=== PATIENT | male | born 1935 | race Caucasian/White ===

== ENCOUNTER 2016-08-16 08:59 | Emergency (ER) | payer MEDICARE, OTHER ==
[~2016-08-16] VITALS: Ht 185.4 cm; Wt 94.3 kg
[~2016-08-16 08:59] MED LIST: APIX5TAB3 PO; ASPI-630 PO; ATOR40TA59 PO; B12/1TAB3 PO; DILT180C2 PO; FENO54TA PO; FOLI1TAB16 PO; GLIM1TAB2 PO; ISOS60TA; METF500T4 PO; NEBI2.5T2 PO; NEBI5TAB2 PO; OMEP40CA5 PO; SIMV20TA3 PO; VITA1TAB19 PO
[2016-08-16] MEDS ORDERED: AMIODARONE 150 MG/3 ML VIAL IVP ONE (09:09)
[2016-08-16] MEDS ORDERED: IV NORMAL SALINE 100ML 100 ML ONE (09:09)
[2016-08-16] MEDS ORDERED: MORPHINE SULFATE 4 MG/ML DISP.SYRIN. ONE (09:14)
[2016-08-16] MEDS ORDERED: AMIODARONE 150 MG in IV DEXTROSE 5% 100 ML IV ONE (09:30)
[2016-08-16] MEDS ORDERED: 0.9 % SODIUM CHLORIDE 10 ML DISP.SYRIN. IV PRN (09:30)
[2016-08-16] MEDS ORDERED: AMIODARONE 900 MG in IV DEXTROSE 5% 500 ML IV ONE (09:30)
[2016-08-16] MEDS ORDERED: MORPHINE SULFATE 4 MG/ML DISP.SYRIN. IV/SQ PRN (09:30)
[2016-08-16 09:34] LABS: BASO # 0.1 x10^3/uL (0.0-0.2); BASO % 1 % (0-3); EOS # 0.4 x10^3/uL (0.0-0.7); EOS % 3 % (0-3); HEMATOCRIT 40.2 % (39.0-53.0); HEMOGLOBIN 13.3 g/dL (13.0-17.5); LYMPH # 2.9 x10^3/uL (1.0-4.8); LYMPH % 22 % (24-48); MEAN CORPUSCULAR HEMOGLOBIN 29 pg (25-35); MEAN CORPUSCULAR HGB CONC 33 g/dL (31-37); MEAN CORPUSCULAR VOLUME 88 fL (79-100); MONO # 1.4 x10^3/uL (0.0-1.1); MONO % 11 % (0-9); NEUT # 8.4 x10^3uL (1.8-7.7); NEUT % 63 % (31-73); PLATELET COUNT 244 x10^3/uL (140-400); RED BLOOD COUNT 4.57 x10^6/uL (4.30-5.70); RED CELL DISTRIBUTION WIDTH 15.4 % (11.5-14.5); WHITE BLOOD COUNT 13.2 x10^3/uL (4.0-11.0)
--- NOTE | 2016-08-16 09:40 | RAD ---
Indication chest pain. Tachycardia. A single view of the chest was obtained. Comparison is made to a study 03/16/2016. The heart and pulmonary vessels appear normal. The lungs are clear. There is no pleural fluid or pneumothorax. There has not been a significant change compared to the previous exam. Postoperative changes are noted. IMPRESSION: No acute or focal process seen in the chest. No significant change
[2016-08-16 09:43] LABS: ALBUMIN 3.3 g/dL (3.4-5.0); ALBUMIN/GLOBULIN RATIO 0.8 (1.0-1.7); CALCIUM 9.1 mg/dL (8.5-10.1); CREATININE 1.5 mg/dL (0.7-1.3); GFR 44.8; POTASSIUM 4.1 mmol/L (3.5-5.1); TOTAL BILIRUBIN 0.8 mg/dL (0.2-1.0); TOTAL PROTEIN 7.4 g/dL (6.4-8.2)
[2016-08-16] MEDS ORDERED: IV NORMAL SALINE 500ML 500 ML ONE (09:51)
--- NOTE | 2016-08-16 09:55 | PHYS DOC ---
Past History Past Medical History: CAD, Diabetes, High Cholesterol Past Surgical History: Coronary Bypass Surgery, Other Smoking: Non-smoker Alcohol Use: None Drug Use: None Adult General Chief Complaint Chief Complaint: CHEST PAIN HPI HPI Patient is a 81-year-old year old who presents with chest pain and rapid heart rate. He states that 3 weeks ago he was just in the hospital and had a cardiac stent This morning he woke up between 10/01/44 and had shortness of breath noted pain across his chest with shortness of breath. He came diaphoretic and slight chest pain pain was about 7 months 10 scale and nothing made it better or worse he denies any pain at the present time This man has known chest pain and known cardiac disease. He presents now for evaluation. Review of Systems Review of Systems Constitutional: Denies fever or chills [] Eyes: Denies change in visual acuity, redness, or eye pain [] HENT: Denies nasal congestion or sore throat [] Respiratory: Denies cough or shortness of breath [] Cardiovascular: No additional information not addressed in HPI [] GI: Denies abdominal pain, nausea, vomiting, bloody stools or diarrhea [] : Denies dysuria or hematuria [] Musculoskeletal: Denies back pain or joint pain [] Integument: Denies rash or skin lesions [] Neurologic: Denies headache, focal weakness or sensory changes [] Endocrine: Denies polyuria or polydipsia [] Current Medications Current Medications Current Medications Medications (Trade) Dose Ordered Sig/Kevin Start Time Stop Time Status Last Admin Dose Admin Amiodarone HCl (Cordarone) 150 mg STK-MED ONCE 08/16/16 09:09 08/16/16 09:10 DC Amiodarone HCl 150 mg/Dextrose 103 ml @ 400 mls/hr 1X ONCE 08/16/16 09:30 08/16/16 09:45 DC 08/16/16 09:15 400 MLS/HR Amiodarone HCl 900 mg/Dextrose 518 ml @ 0 mls/hr 1X ONCE 08/16/16 09:30 08/16/16 09:31 DC Morphine Sulfate (Morphine 4mg Syringe) 4 mg PRN Q15MIN PRN 08/16/16 09:30 08/17/16 09:29 08/16/16 09:17 4 MG Sodium Chloride 500 ml @ As Directed STK-MED ONCE 08/16/16 09:51 08/16/16 09:52 DC Sodium Chloride (Normal Saline Flush) 10 ml QSHIFT PRN 08/16/16 09:30 Allergies Allergies Allergies Coded Allergies Type Severity Reaction Last Updated Verified No Known Drug Allergies 08/16/16 No Physical Exam Physical Exam Constitutional: Well developed, well nourished, no acute distress, non-toxic appearance. [] HENT: Normocephalic, atraumatic, bilateral external ears normal, oropharynx moist, no oral exudates, nose normal. [] Eyes: PERRLA, EOMI, conjunctiva normal, no discharge. [] Neck: Normal range of motion, no tenderness, supple, no stridor. [] Cardiovascular:Heart rate regular rhythm, no murmur [] Lungs & Thorax: Bilateral breath sounds clear to auscultation [] Abdomen: Bowel sounds normal, soft, no tenderness, no masses, no pulsatile masses. [] Skin: Warm, dry, no erythema, no rash. [] Back: No tenderness, no CVA tenderness. [] Extremities: No tenderness, no cyanosis, no clubbing, ROM intact, no edema. [] Neurologic: Alert and oriented X 3, normal motor function, normal sensory function, no focal deficits noted. [] Psychologic: Affect normal, judgement normal, mood normal. [] Current Patient Data Vital Signs Vital Signs Date Time Temp Pulse Resp B/P (MAP) Pulse Ox O2 Delivery O2 Flow Rate FiO2 08/16/16 09:24 96.6 160 20 99 Room Air 08/16/16 09:15 113/80 Lab Results Laboratory Tests Test 08/16/16 09:12 White Blood Count 13.2 x10^3/uL (4.0-11.0) H Red Blood Count 4.57 x10^6/uL (4.30-5.70) Hemoglobin 13.3 g/dL (13.0-17.5) Hematocrit 40.2 % (39.0-53.0) Mean Corpuscular Volume 88 fL (79-100) Mean Corpuscular Hemoglobin 29 pg (25-35) Mean Corpuscular Hemoglobin Concent 33 g/dL (31-37) Red Cell Distribution Width 15.4 % (11.5-14.5) H Platelet Count 244 x10^3/uL (140-400) Neutrophils (%) (Auto) 63 % (31-73) Lymphocytes (%) (Auto) 22 % (24-48) L Monocytes (%) (Auto) 11 % (0-9) H Eosinophils (%) (Auto) 3 % (0-3) Basophils (%) (Auto) 1 % (0-3) Neutrophils # (Auto) 8.4 x10^3uL (1.8-7.7) H Lymphocytes # (Auto) 2.9 x10^3/uL (1.0-4.8) Monocytes # (Auto) 1.4 x10^3/uL (0.0-1.1) H Eosinophils # (Auto) 0.4 x10^3/uL (0.0-0.7) Basophils # (Auto) 0.1 x10^3/uL (0.0-0.2) Sodium Level 140 mmol/L (136-145) Potassium Level 4.1 mmol/L (3.5-5.1) Chloride Level 103 mmol/L (98-107) Carbon Dioxide Level 20 mmol/L (21-32) L Anion Gap 17 (6-14) H Blood Urea Nitrogen 24 mg/dL (8-26) Creatinine 1.5 mg/dL (0.7-1.3) H Estimated GFR (Cockcroft-Gault) 44.8 BUN/Creatinine Ratio 16 (6-20) Glucose Level 186 mg/dL (70-99) H Calcium Level 9.1 mg/dL (8.5-10.1) Total Bilirubin 0.8 mg/dL (0.2-1.0) Aspartate Amino Transferase (AST) 20 U/L (15-37) Alanine Aminotransferase (ALT) 19 U/L (16-63) Alkaline Phosphatase 112 U/L (46-116) Total Protein 7.4 g/dL (6.4-8.2) Albumin 3.3 g/dL (3.4-5.0) L Albumin/Globulin Ratio 0.8 (1.0-1.7) L EKG EKG [] Radiology/Procedures Radiology/Procedures [] Impressions: Chest pain Supraventricular tachycardia -resolved Course & Med Decision Making Course & Med Decision Making Pertinent Labs and Imaging studies reviewed. (See chart for details) This patient will be admitted to Dr. Marcum [] Sole Disclaimer Dragon Disclaimer This chart was dictated in whole or in part using Voice Recognition software in a busy, high-work load, and often noisy Emergency Department environment. It may contain unintended and wholly unrecognized errors or omissions. Departure Departure: Disposition: ADMITTED INPATIENT Condition: IMPROVED Referrals: BAKARI MEJÍA MD (PCP) JORGE AKERS MD August 16, 2016 09:55
[2016-08-16] MEDS ORDERED: IV NORMAL SALINE 500ML 500 ML IV ONE (10:15)
--- NOTE | 2016-08-16 10:23 | EKG ---
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
--- NOTE | 2016-08-16 10:23 | EKG ---
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
--- NOTE | 2016-08-16 10:23 | EKG ---
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
[2016-08-16 12:05] VITALS: BP 136/87
[2016-08-16] MEDS ORDERED: ASPIRIN ENTERIC COATED 81 MG TABLET.DR. PO ONE (12:13)
[2016-08-16] MEDS ORDERED: ASPIRIN 81 MG TAB.CHEW PO ONE (12:30)
== END 2016-08-16 12:22 | disposition other institution (70) ==
LOC: ER 08:59
DX: R07.9 Chest pain, unspecified (principal); I25.10 Atherosclerotic heart disease of native coronary artery without angina pectoris; E78.00 Pure hypercholesterolemia, unspecified; E11.9 Type 2 diabetes mellitus without complications; Z95.1 Presence of aortocoronary bypass graft
CPT/HCPCS: 36415; 71010; 80053; 84484; 85027; 93005; 96365; 96366; 96375; 99285; J0282; J2270; J7040

== ENCOUNTER → 2016-10-14 | Outpatient (CLI) | payer OTHER ==
--- NOTE | 2016-10-14 12:33 | RAD ---
EXAM: Chest 2 views. HISTORY: Productive cough. COMPARISON: 08/16/2016. FINDINGS: Frontal and lateral views of the chest are obtained. Digital cabbage Mild interstitial opacities in the bases most likely indicate atelectasis. There are no confluent infiltrates. There are atherosclerotic calcifications of the aorta. There is no pneumothorax or pleural effusion. The heart is not enlarged. IMPRESSION: 1. No confluent infiltrates.
== END | disposition home or self-care (01) ==
LOC: DXRADRC 10:06
PROVIDERS: ATTEND Physician Assistant
DX: R05 Cough (principal); I70.0 Atherosclerosis of aorta
CPT/HCPCS: 71020

== ENCOUNTER → 2016-10-25 | Outpatient (CLI) | payer OTHER ==
--- NOTE | 2016-10-25 11:31 | RAD ---
APPROVED REPORT Patient Location : OUT-PATIENT Indications Lower Extremity Edema : Bilateral The right GSV measures 2.9 mm and does not show any evidence of reflux. The right lesser saphenous ve in measures approximate 4.6 mm and does not show any evidence of reflux. The left great saphenous vein measures approximately 3.3 mm and there is no evidence of reflux. The l eft lesser saphenous vein measures approximately 2.8 mm and does not show any evidence of reflux. No perforators seen in the bilateral lower extremities. The saphenofemoral junctions appear free of a ny thrombotic occlusion on limited imaging. Critical Notification Critical Value: No
== END | disposition home or self-care (01) ==
LOC: US 07:33
PROVIDERS: ATTEND Internal Medicine Cardiovascular Disease
DX: R60.0 Localized edema (principal)
CPT/HCPCS: 93970

== ENCOUNTER 2016-12-20 08:16 | Inpatient (IN) | payer OTHER ==
[~2016-12-20] VITALS: Ht 188 cm; Wt 95.3 kg
--- NOTE | 2016-12-20 08:22 | ED.ADGEN ---
Past History Past Medical History: CAD, Diabetes, High Cholesterol Past Surgical History: Coronary Bypass Surgery, Other Smoking: Non-smoker Alcohol Use: None Drug Use: None Adult General Chief Complaint Chief Complaint Right leg weakness, right arm numbness [facility] Patient is a 81 year old male who presents with right leg weakness and right arm numbness that started around 7:30 this morning he felt like his right leg was going give out. He states that lasted for couple minutes he said down and it resolved. This occurred 2 additional times and then he called 911. When fire department first arrived they found him hypoxic in the mid 80s and then when EMS showed up he was 96%. Currently he denies any symptoms. Review of Systems Review of Systems Constitutional: Denies fever or chills [] Eyes: Denies change in visual acuity, redness, or eye pain [] HENT: Denies nasal congestion or sore throat [] Respiratory: Denies cough or shortness of breath [] Cardiovascular: No additional information not addressed in HPI [] GI: Denies abdominal pain, nausea, vomiting, bloody stools or diarrhea [] : Denies dysuria or hematuria [] Musculoskeletal: Denies back pain or joint pain [] Integument: Denies rash or skin lesions [] Neurologic: Denies headache, focal weakness or sensory changes [] Endocrine: Denies polyuria or polydipsia [] Allergies Allergies Allergies Coded Allergies Type Severity Reaction Last Updated Verified No Known Drug Allergies 08/16/16 No Physical Exam Physical Exam Constitutional: Well developed, well nourished, no acute distress, non-toxic appearance. [] HENT: Normocephalic, atraumatic, bilateral external ears normal, oropharynx moist, no oral exudates, nose normal. [] Eyes: PERRLA, EOMI, conjunctiva normal, no discharge. [] Neck: Normal range of motion, no tenderness, supple, no stridor. [] Cardiovascular:Heart rate regular rhythm, no murmur [] Lungs & Thorax: Bilateral breath sounds clear to auscultation [] Abdomen: Bowel sounds normal, soft, no tenderness, no masses, no pulsatile masses. [] Skin: Warm, dry, no erythema, no rash. [] Back: No tenderness, no CVA tenderness. [] Extremities: No tenderness, no cyanosis, no clubbing, ROM intact, 1+ right lower extremity edema. [] Neurologic: Alert and oriented X 3, normal motor function, normal sensory function, no focal deficits noted. It's 5 out of 5 bilateral upper and lower extremities, finger-nose intact, and charcoal muscles intact. Psychologic: Affect normal, judgement normal, mood normal. [] Current Patient Data Vital Signs Vital Signs Date Time Temp Pulse Resp B/P (MAP) Pulse Ox O2 Delivery O2 Flow Rate FiO2 12/20/16 10:06 73 20 119/86 (97) 97 Room Air 12/20/16 08:16 97.5 Lab Results Laboratory Tests Test 12/20/16 08:42 12/20/16 10:15 White Blood Count 7.0 x10^3/uL (4.0-11.0) Red Blood Count 4.04 x10^6/uL (4.30-5.70) L Hemoglobin 12.3 g/dL (13.0-17.5) L Hematocrit 36.6 % (39.0-53.0) L Mean Corpuscular Volume 91 fL (79-100) Mean Corpuscular Hemoglobin 30 pg (25-35) Mean Corpuscular Hemoglobin Concent 34 g/dL (31-37) Red Cell Distribution Width 15.2 % (11.5-14.5) H Platelet Count 173 x10^3/uL (140-400) Neutrophils (%) (Auto) 63 % (31-73) Lymphocytes (%) (Auto) 20 % (24-48) L Monocytes (%) (Auto) 10 % (0-9) H Eosinophils (%) (Auto) 7 % (0-3) H Basophils (%) (Auto) 1 % (0-3) Neutrophils # (Auto) 4.4 x10^3uL (1.8-7.7) Lymphocytes # (Auto) 1.4 x10^3/uL (1.0-4.8) Monocytes # (Auto) 0.7 x10^3/uL (0.0-1.1) Eosinophils # (Auto) 0.5 x10^3/uL (0.0-0.7) Basophils # (Auto) 0.1 x10^3/uL (0.0-0.2) Prothrombin Time 10.4 SEC (9.4-11.4) Prothrombin Time INR 1.0 (0.9-1.1) PTT 25 SEC (23-33) Sodium Level 140 mmol/L (136-145) Potassium Level 4.3 mmol/L (3.5-5.1) Chloride Level 107 mmol/L (98-107) Carbon Dioxide Level 20 mmol/L (21-32) L Anion Gap 13 (6-14) Blood Urea Nitrogen 25 mg/dL (8-26) Creatinine 1.6 mg/dL (0.7-1.3) H Estimated GFR (Cockcroft-Gault) 41.6 BUN/Creatinine Ratio 16 (6-20) Glucose Level 183 mg/dL (70-99) H Lactic Acid Level 3.9 mmol/L (0.4-2.0) H Calcium Level 8.9 mg/dL (8.5-10.1) Total Bilirubin 0.6 mg/dL (0.2-1.0) Aspartate Amino Transferase (AST) 22 U/L (15-37) Alanine Aminotransferase (ALT) 22 U/L (16-63) Alkaline Phosphatase 93 U/L (46-116) Troponin I Quantitative < 0.017 ng/mL (0-0.055) Total Protein 6.6 g/dL (6.4-8.2) Albumin 3.2 g/dL (3.4-5.0) L Albumin/Globulin Ratio 0.9 (1.0-1.7) L Urine Collection Type Unknown Urine Color Yellow Urine Clarity Clear Urine pH 5.0 Urine Specific [place] 1.020 Urine Protein Neg (NEG-TRACE) Urine Glucose (UA) Neg mg/dL (NEG) Urine Ketones (Stick) Trace mg/dL (NEG) Urine Blood Neg (NEG) Urine Nitrite Neg (NEG) Urine Bilirubin Neg (NEG) Urine Urobilinogen Dipstick 0.2 mg/dL (0.2 mg/dL) Urine Leukocyte Esterase Neg (NEG) Urine RBC Rare /HPF (0-2) Urine WBC 0 /HPF (0-4) Urine Squamous Epithelial Cells Occ /LPF Urine Bacteria 0 /HPF (0-FEW) EKG EKG EKG shows sinus rhythm rate of 77 bpm with left bundle branch morphology, no concerning ST elevations appreciated, left axis deviation noted, QTC 452 ms, as interpreted by me. Radiology/Procedures Radiology/Procedures [address] [address] IMAGING REPORT Signed PATIENT: NEIDA FLORES ACCOUNT: [id number] : 1935 LOCATION: ER AGE: 81 SEX: M EXAM STATUS: REG ER ORD. PHYSICIAN: PB LEWIS MD REASON: stroke protocol PROCEDURE: CHEST AP ONLY EXAM: CHEST 1 VIEW History: Right-sided weakness COMPARISON: 10/14/2016 TECHNIQUE: Single portable radiograph of the chest FINDINGS: The cardiac silhouette is unremarkable. The lungs are clear bilaterally. The costophrenic sulci are clear and well demarcated. Median sternotomy wires are identified. IMPRESSION: No radiographic evidence of an acute cardiopulmonary process. DICTATED AND SIGNED BY: JUNIE OCONNOR MD DATE: 12/20/16911 CC: PB LEWIS MD; WALLY VILLEDA ~ [address] [address] IMAGING REPORT Signed PATIENT: NEIDA FLORES ACCOUNT: [id number] : 1935 LOCATION: ER AGE: 81 SEX: M EXAM STATUS: REG ER ORD. PHYSICIAN: PB LEWIS MD REASON: stroke protocol PROCEDURE: CT HEAD WO CONTRAST CT head without contrast History: Right-sided weakness, stroke protocol. Comparison: None. Procedure: Axial images are obtained of the head from the skull base through the vertex without IV contrast. Findings: Mild bilateral pulmonary ventricular white matter hypodensities likely chronic small vessel ischemic disease. Prominent appearing sulci are likely incidental cerebral atrophy changes. The lower most portions of the cerebellum are not included on the images. The ventricles and sulci are normal for the patient's age. No mass-effect, intracranial mass, midline shift, hemorrhage or obvious acute infarction is identified. Basilar cisterns are patent. Bone windows demonstrate no significant calvarial abnormality. The visualized paranasal sinuses appear clear. Impression: 1. No acute intracranial process. Report called to ER physician at time of dictation. PQRS Compliance Statement: One or more of the following individualized dose reduction techniques were utilized for this examination: 1. Automated exposure control 2. Adjustment of the mA and/or kV according to patient size 3. Use of iterative reconstruction technique DICTATED AND SIGNED BY: JUNIE OCONNOR MD DATE: 12/20/16908 CC: PB LEWIS MD; AWLLY VILLEDA ~ Course & Med Decision Making Course & Med Decision Making Pertinent Labs and Imaging studies reviewed. (See chart for details) His symptoms recurred 3 different times and resolved. He has an elevated lactic acid which could be secondary to his initial hypoxemia that is also resolved and based on patient he states that's completely normal for him to have low oxygen taking big breaths and this resolved. He is a full dose aspirin took his aspirin this morning 325 mg. At this time this could be TIA so we'll admit him to Dr. Mckinney and observe him and consult neurology. I have updated the hospitalist on the patient's labs, vital signs and imaging studies. I written interim orders and placed a neurology consultation. Patient's agreeable plans in stable condition at this time. NIH is 0 Final Impression Final Impression Leg weakness-resolved Elevated lactic acidosis Problems: Dragon Disclaimer Dragon Disclaimer This electronic medical record was generated, in whole or in part, using a voice recognition dictation system. PB LEWIS MD Dec 20, 2016 08:22
[2016-12-20 08:55] LABS: BASO # 0.1 x10^3/uL (0.0-0.2); BASO % 1 % (0-3); EOS # 0.5 x10^3/uL (0.0-0.7); EOS % 7 % (0-3); HEMATOCRIT 36.6 % (39.0-53.0); HEMOGLOBIN 12.3 g/dL (13.0-17.5); LYMPH # 1.4 x10^3/uL (1.0-4.8); LYMPH % 20 % (24-48); MEAN CORPUSCULAR HEMOGLOBIN 30 pg (25-35); MEAN CORPUSCULAR HGB CONC 34 g/dL (31-37); MEAN CORPUSCULAR VOLUME 91 fL (79-100); MONO # 0.7 x10^3/uL (0.0-1.1); MONO % 10 % (0-9); NEUT # 4.4 x10^3uL (1.8-7.7); NEUT % 63 % (31-73); PLATELET COUNT 173 x10^3/uL (140-400); RED BLOOD COUNT 4.04 x10^6/uL (4.30-5.70); RED CELL DISTRIBUTION WIDTH 15.2 % (11.5-14.5)
--- NOTE | 2016-12-20 09:14 | RAD ---
CT head without contrast History: Right-sided weakness, stroke protocol. Comparison: None. Procedure: Axial images are obtained of the head from the skull base through the vertex without IV contrast. Findings: Mild bilateral pulmonary ventricular white matter hypodensities likely chronic small vessel ischemic disease. Prominent appearing sulci are likely incidental cerebral atrophy changes. The lower most portions of the cerebellum are not included on the images. The ventricles and sulci are normal for the patient's age. No mass-effect, intracranial mass, midline shift, hemorrhage or obvious acute infarction is identified. Basilar cisterns are patent. Bone windows demonstrate no significant calvarial abnormality. The visualized paranasal sinuses appear clear. Impression: 1. No acute intracranial process. Report called to ER physician at time of dictation. PQRS Compliance Statement: One or more of the following individualized dose reduction techniques were utilized for this examination: 1. Automated exposure control 2. Adjustment of the mA and/or kV according to patient size 3. Use of iterative reconstruction technique
--- NOTE | 2016-12-20 09:15 | RAD ---
EXAM: CHEST 1 VIEW History: Right-sided weakness COMPARISON: 10/14/2016 TECHNIQUE: Single portable radiograph of the chest FINDINGS: The cardiac silhouette is unremarkable. The lungs are clear bilaterally. The costophrenic sulci are clear and well demarcated. Median sternotomy wires are identified. IMPRESSION: No radiographic evidence of an acute cardiopulmonary process.
[2016-12-20 09:22] LABS: ALBUMIN 3.2 g/dL (3.4-5.0); ALBUMIN/GLOBULIN RATIO 0.9 (1.0-1.7); CALCIUM 8.9 mg/dL (8.5-10.1); CREATININE 1.6 mg/dL (0.7-1.3); GFR 41.6; POTASSIUM 4.3 mmol/L (3.5-5.1); TOTAL BILIRUBIN 0.6 mg/dL (0.2-1.0); TOTAL PROTEIN 6.6 g/dL (6.4-8.2)
[2016-12-20 10:39] LABS: BILIRUBIN,URINE NEG (NEG); CLARITY,URINE CLEAR; COLOR,URINE YELLOW; GLUCOSE,URINE NEG (NEG)
[2016-12-20 10:40] LABS: BACTERIA,URINE 0 /HPF (0-FEW); NITRITE,URINE NEG (NEG); RBC,URINE RARE /HPF (0-2); SQUAMOUS EPITHELIAL CELL,UR OCC /LPF; UROBILINOGEN,URINE 0.2 mg/dL (0.2 mg/dL); WBC,URINE 0 /HPF (0-4)
[2016-12-20] MEDS ORDERED: ONDANSETRON PF 4 MG/2 ML VIAL. IV PRN (10:45)
--- NOTE | 2016-12-20 11:45 | RAD ---
Exam performed: Carotid Doppler. History: Dizziness, lightheadedness Technique: Grayscale, color Doppler 2-D, spectral waveform analysis of the carotid system was performed and images are all obtained. Findings: There is mild atherosclerotic plaque within both carotid bulbs extending into the internal carotid artery bilaterally. Doppler interrogation reveals velocities as follows . Peak systolic velocity within the right common carotid artery ranges from 57 cm/sec whereas on the left ranges from 55 cm/sec . The peak systolic velocity within the right ICA ranges from 44-65 cm/sec whereas on the left ranges from 44-75 cm/sec. The ICA to CCA ratio on the right ranges from 1.1whereas on the left ranges from 1.4. There is antegrade flow in both vertebral arteries. Impression: 1.Mild plaquing involving both carotid systems without any flow-limiting stenosis. Note: Stenosis calculations for CT, MR and conventional angiography are based upon determination of the distal ICA diameter in accordance with the NASCET methodology. Stenosis calculations for doppler studies are derived from validated velocity criteria which are known to correlate with NASCET methodology of determining stenosis.
[2016-12-20 12:17] VITALS: BP 158/83
[2016-12-20] MEDS ORDERED: CLOP75TA PO (12:46)
[2016-12-20] MEDS ORDERED: CHOL10003 PO (12:46)
[2016-12-20] MEDS ORDERED: ASPI325T8 PO (12:46)
--- NOTE | 2016-12-20 13:47 | HP ---
ADMIT DATE: 12/20/2016 HISTORY OF PRESENT ILLNESS: The patient is an 81-year-old male patient, who was brought to the Emergency Room by the emergency medical services with a complaint of right lower extremity weakness and right arm numbness that started on 7:30 this morning. He felt like his right leg was going to give away. He stated lasted for couple of minutes and sat down and it resolved. This occurred 2 additional times and then he called 911. When first arrived, they found him hypoxic with oxygen saturation were in the mid 80s; however, by the time the emergency medical services showed up his oxygen saturation was up to 96%. When he arrived to the Emergency Room all his symptoms has subsided. On questioning him further, he denied any headache, denied any blurring of vision, denied any tingling, numbness in his face or difficulty swallowing. PAST MEDICAL HISTORY: Significant for coronary artery disease for which he underwent PCI and stent deployment in 2009. He has had also left heart catheterization in 03/2013. He underwent coronary artery bypass surgery in the end of last year. Other medical problems include COPD, deep vein thrombosis and pulmonary embolism, atrial fibrillation, hypertension, hyperlipidemia. He is also known to have chronic lymphatic leukemia. PAST SURGICAL HISTORY: Significant for PCI and stent deployment, coronary artery bypass graft surgery, appendectomy, skin cancer removal and bone marrow biopsy. FAMILY HISTORY: Significant for coronary artery disease in his father. His mother actually at age of 87 because of myocardial infarction. SOCIAL HISTORY: He is , has one daughter and one son. One of his sons at age of 50 because of alcoholism. He smoked when he was 12 years old and up to the age of 39s and quit since then. He does not drink alcohol or use any recreational drugs. 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 REVIEW OF SYSTEMS: The patient denied any blurring of vision, cataract, glaucoma or macular degeneration. Denied any headache, tinnitus or sensorineural deafness. Denied any nosebleeds, stuffy nose or postnasal drip. Denied any sore throat, sore tongue, toothache, hoarseness of voice or difficulty swallowing. Denied any nausea, vomiting, diarrhea or constipation. Denied any hematemesis, melena or hematochezia. Denied any dysuria, frequency or hematuria. Denied any chest pain or shortness of breath. Denied any cough, phlegm or hemoptysis. Denied any chills, rigors, or fever. Denied any dizziness, lightheadedness or vertigo. He did complain of weakness, tingling and numbness in the right upper extremity and right lower extremity. PHYSICAL EXAMINATION: GENERAL: On arrival to the Emergency Room all his symptoms have subsided. On examining him, he was somewhat pale, but not jaundiced, cyanosis, or thyromegaly. No jugular venous distension. No lower limb edema. VITAL SIGNS: His heart rate was 78, blood pressure 126/63, temperature was 97.5, respiratory rate was 20, and oxygen saturation was 98% on room air. HEAD, EYES, EARS, NOSE AND THROAT: Showed normocephalic, atraumatic. NECK: Supple. HEART: Showed normal first and second heart sounds with no gallop, rub, or murmur. CHEST: Clear to auscultation. No crepitation or rhonchi. ABDOMEN: Distended, soft, nontender. No guarding or rigidity. No organomegaly. All hernial orifices intact. Bowel sounds normal. NEUROLOGIC: He was awake, alert, responding appropriately. Cranial nerves intact. EXTREMITIES: He moves extremities without difficulty. There is no evidence of any weakness. No cerebellar ataxia. LABORATORY DATA: While in the Emergency Room, he had lab work done, which showed a white cell count 7000, hemoglobin 12, hematocrit 36, MCV 91, and platelet count of 173,000 with normal manual differential. His chemistry showed a serum sodium 140, potassium 4.3, chloride 107, bicarbonate 20, anion gap of 13, BUN 25, creatinine 1.6, estimated GFR was 41 mL per minute. His glucose 183, calcium was 8.9. His lactic acid was high at 3.9. Total bilirubin, AST, ALT, alkaline phosphatase were normal. Total protein was 6.6, albumin was 3.2. His troponin was less than 0.017. His prothrombin time was 10.4, INR of 1, aPTT was 25. His urinalysis was essentially unremarkable. The patient did have a CT scan of the head, which showed that he has mild bilateral ventricular white matter , likely chronic small vessel ischemic disease, has prominent appearing sulci are likely incidental cerebral atrophic changes in the lower most portion of the cerebellum are not included in the images. The ventricles and sulci are normal for the patient's age. No mass effect, intracranial mass, midline shift, hemorrhage or obvious acute infarction identified. Basilar cisterns are patent. Bone windows demonstrate no significant calvarial abnormality. The visualized paranasal sinuses appear clear. We did order bilateral carotid Doppler ultrasound, which showed that the patient has mild plaquing involving both carotid systems without any flow limiting stenosis. We will also arrange for him to have an echocardiogram. We will check his fasting lipid profile and consult Dr. Thorne for further evaluation and treatment. We will continue his current medications that include aspirin 325 mg once a day, atorvastatin calcium 40 mg at bedtime, cholecalciferol for vitamin D3 1000 international units once a day. He is also on Plavix 75 mg once a day, metformin 500 mg twice a day and omeprazole 40 mg once a day. ELAINE MURRAY MD DR: KATRIN/moe JOB#: [id number] / [id number]
[2016-12-20 15:19] VITALS: BP 159/78
--- NOTE | 2016-12-20 15:53 | PDOC2 ---
TIFFANIEHOWARD Vasyl LOFTSMAN 12/20/16 1553: CONSULT Date of Admission DATE: 12/20/16 TIME: 15:52 Reason for Consult: recent CABG Problem List Problems Medical Problems: (1) Weakness Status: Acute History of Present Illness Mr Atwood is an 81 year old male with history of coronary artery disease, recent CABG, paroxysmal atrial fibrillation and ICM. He presents with complaints of transient right sided weakness. He describes 3 episodes of weakness in his right leg and arm. He describes his leg as feeling very heavy and he reports being able to move his right arm but a loss of fine motor skills in that hand. One episode occurred while he was shaving and he reports being unable to control the razor. He denies any chest pain. He reports dyspnea on exertion that is at baseline. He has been going to [facility] for treatments and is currently in his 6th week. Past Medical History CAD, CABG status, hypertension, hyperlipidemia, paroxysmal atrial fibrillation, SVT, CLL, DVT/PE, orthostatic hypotension with syncope, COPD, GERD, osteoarthritis, BPH, diabetes mellitus His most recent cath on 08/18/16 revealed LM distal 20% LAD ostial 80% followed by patent stent and distal vessel filling via patent DAWSON graft D1 80% proximal with distal filling via patent SVG LCX normal RCA patent stent with 20% mid segment RPDA and RPL were normal. EF 55% Past Surgical History appendectomy, bone marrow biopsy Family History CAD, stroke in father Social History remote history of tobaccoism, no significant ETOH, no illicit drugs Current Medications Current Medications Ondansetron HCl (Zofran) 4 mg PRN Q4HRS PRN IV NAUSEA/VOMITING; Start 12/20/16 at 10:45; Stop 12/21/16 at 10:44 Aspirin (Kristopher Aspirin) 325 mg DAILY PO ; Start 12/21/16 at 09:00 Vitamin D (Vitamin D3) 1,000 unit DAILY PO ; Start 12/21/16 at 09:00 Clopidogrel Bisulfate (Plavix) 75 mg DAILY PO ; Start 12/21/16 at 09:00 Metformin HCl (Glucophage) 500 mg BIDWMEALS PO ; Start 12/20/16 at 17:00; Stop 12/20/16 at 17:00; Status DC Atorvastatin Calcium (Lipitor) 40 mg QHS PO ; Start 12/20/16 at 21:00 Pantoprazole Sodium (Protonix) 40 mg DAILYAC PO ; Start 12/21/16 at 07:30 Active Scripts Active Reported Vitamin D3 (Cholecalciferol (Vitamin D3)) 1,000 Unit Tablet 1 Tab PO DAILY LAST DOSE GIVEN: DATE: TIME: NEXT DOSE DUE: DATE: TIME: Aspirin 325 Mg Tablet 1 Tab PO DAILY LAST DOSE GIVEN: DATE: TIME: NEXT DOSE DUE: DATE: TIME: Clopidogrel (Clopidogrel Bisulfate) 75 Mg Tablet 1 Tab PO DAILY LAST DOSE GIVEN: DATE: TIME: NEXT DOSE DUE: DATE: TIME: Metformin Hcl 500 Mg Tablet 1 Tab PO BID LAST DOSE GIVEN: DATE: TIME: NEXT DOSE DUE: DATE: TIME: Atorvastatin Calcium 40 Mg Tablet 1 Tab PO DAILY LAST DOSE GIVEN: DATE: TIME: NEXT DOSE DUE: DATE: TIME: Omeprazole 40 Mg Capsule.dr 40 Mg PO DAILY LAST DOSE GIVEN: DATE: TIME: NEXT DOSE DUE: DATE: TIME: Allergies: Coded Allergies: No Known Drug Allergies (Unverified , 08/16/16) Review of System as per HPI General: Alert, Oriented X3, Cooperative, No acute distress HEENT: Atraumatic, EOMI, Mucous membr. moist/pink Lungs: Clear to auscultation, Normal air movement Heart: Regular rate, Normal S1, Normal S2, Other (no gallops, clicks or rubs) Abdomen: Normal bowel sounds, Soft, No tenderness Extremities: No cyanosis, Normal pulses, Other (trace to 1+ edema right lower extremity) Neuro: Normal speech, Strength at 5/5 X4 ext, Cranial nerves 3-12 NL Psych/Mental Status: Mental status NL, Mood NL VITALS Vital Signs Date Time Temp Pulse Resp B/P (MAP) Pulse Ox O2 Delivery O2 Flow Rate FiO2 12/20/16 15:19 97.5 71 20 159/78 (105) 95 Room Air Labs Laboratory Tests Test 12/20/16 08:42 12/20/16 10:15 12/20/16 12:43 White Blood Count 7.0 x10^3/uL (4.0-11.0) Red Blood Count 4.04 x10^6/uL (4.30-5.70) Hemoglobin 12.3 g/dL (13.0-17.5) Hematocrit 36.6 % (39.0-53.0) Mean Corpuscular Volume 91 fL (79-100) Mean Corpuscular Hemoglobin 30 pg (25-35) Mean Corpuscular Hemoglobin Concent 34 g/dL (31-37) Red Cell Distribution Width 15.2 % (11.5-14.5) Platelet Count 173 x10^3/uL (140-400) Neutrophils (%) (Auto) 63 % (31-73) Lymphocytes (%) (Auto) 20 % (24-48) Monocytes (%) (Auto) 10 % (0-9) Eosinophils (%) (Auto) 7 % (0-3) Basophils (%) (Auto) 1 % (0-3) Neutrophils # (Auto) 4.4 x10^3uL (1.8-7.7) Lymphocytes # (Auto) 1.4 x10^3/uL (1.0-4.8) Monocytes # (Auto) 0.7 x10^3/uL (0.0-1.1) Eosinophils # (Auto) 0.5 x10^3/uL (0.0-0.7) Basophils # (Auto) 0.1 x10^3/uL (0.0-0.2) Prothrombin Time 10.4 SEC (9.4-11.4) Prothromb Time International Ratio 1.0 (0.9-1.1) Activated Partial Thromboplast Time 25 SEC (23-33) Sodium Level 140 mmol/L (136-145) Potassium Level 4.3 mmol/L (3.5-5.1) Chloride Level 107 mmol/L (98-107) Carbon Dioxide Level 20 mmol/L (21-32) Anion Gap 13 (6-14) Blood Urea Nitrogen 25 mg/dL (8-26) Creatinine 1.6 mg/dL (0.7-1.3) Estimated GFR (Cockcroft-Gault) 41.6 BUN/Creatinine Ratio 16 (6-20) Glucose Level 183 mg/dL (70-99) Lactic Acid Level 3.9 mmol/L (0.4-2.0) 1.9 mmol/L (0.4-2.0) Calcium Level 8.9 mg/dL (8.5-10.1) Total Bilirubin 0.6 mg/dL (0.2-1.0) Aspartate Amino Transf (AST/SGOT) 22 U/L (15-37) Alanine Aminotransferase (ALT/SGPT) 22 U/L (16-63) Alkaline Phosphatase 93 U/L (46-116) Troponin I Quantitative < 0.017 ng/mL (0-0.055) Total Protein 6.6 g/dL (6.4-8.2) Albumin 3.2 g/dL (3.4-5.0) Albumin/Globulin Ratio 0.9 (1.0-1.7) Triglycerides Level 190 mg/dL (0-150) Cholesterol Level 122 mg/dL (0-200) LDL Cholesterol, Calculated 51 mg/dL (0-100) VLDL Cholesterol, Calculated 38 mg/dL (0-40) Non-HDL Cholesterol Calculated 89 mg/dL (0-129) HDL Cholesterol 33 mg/dL (40-60) Cholesterol/HDL Ratio 3.0 Urine Collection Type Unknown Urine Color Yellow Urine Clarity Clear Urine pH 5.0 Urine Specific [place] 1.020 Urine Protein Neg (NEG-TRACE) Urine Glucose (UA) Neg mg/dL (NEG) Urine Ketones (Stick) Trace mg/dL (NEG) Urine Blood Neg (NEG) Urine Nitrite Neg (NEG) Urine Bilirubin Neg (NEG) Urine Urobilinogen Dipstick 0.2 mg/dL (0.2 mg/dL) Urine Leukocyte Esterase Neg (NEG) Urine RBC Rare /HPF (0-2) Urine WBC 0 /HPF (0-4) Urine Squamous Epithelial Cells Occ /LPF Urine Bacteria 0 /HPF (0-FEW) Images EKG - sinus rhythm, LBBB Head CT- Impression: 1. No acute intracranial process. CXR - IMPRESSION: No radiographic evidence of an acute cardiopulmonary process. Carotid doppler- 1.Mild plaquing involving both carotid systems without any flow-limiting stenosis. Assessment/Plan 1. transient right sided weakness c/w TIA - neuro consulted. 2. CAD/CABG status with subsequent stents - angina free, continue med RX 3. paroxysmal atrial fibrillation - currently in sinus rhythm. On DAPT only as he was thought to be a significant fall risk. Suggest PT eval for risk assessment. 4. hypertension - resume home meds 5. hyperlipidemia - resume statin 6. right lower extremity edema - check venous duplex Problems: DARIANA HERZOG MD 12/21/16 0843: CONSULT Allergies: Coded Allergies: No Known Drug Allergies (Unverified , 08/16/16) Assessment/Plan Patient seen and examined on 12-20. Probable TIA. Neurological changes above. Significantly improved. Continue present treatments. Neurology evaluation. History of coronary artery disease with bypass surgery. No chest pain. Rhythm stable. We'll check old records. Continue present medications. History of paroxysmal atrial fibrillation. Now in sinus rhythm. Has not been fully anticoagulated due to fall risk. We'll continue to evaluate. Hypertension. Continue present medications. Hyperlipidemia. Recheck lipid panel. Lower extremity swelling on the right. Venous ultrasound pending. Thank you for allowing us to participate in the care of your patient. Problems: HOWARD MORENO APRN Dec 20, 2016 15:53 DARIANA HERZOG MD Dec 21, 2016 08:43
[2016-12-20] MEDS ORDERED: DEXTROSE 50% 25 GM / 50ML DISP.SYRIN. IV PRN (16:45)
[2016-12-20] MEDS ORDERED: metFORMIN 500 MG TABLET PO SCH (17:00)
--- NOTE | 2016-12-20 18:47 | EKG ---
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
[2016-12-20 19:56] VITALS: BP 157/88
[2016-12-20] MEDS ORDERED: ATORVASTATIN CALCIUM 20 MG TABLET PO SCH (21:00)
[2016-12-20] MEDS ORDERED: ENOXAPARIN 40 MG/0.4 ML DISP.SYRIN. SQ SCH (21:00)
[2016-12-21 06:14] LABS: CALCIUM 8.9 mg/dL (8.5-10.1); CREATININE 1.1 mg/dL (0.7-1.3); GFR 64.1; POTASSIUM 4.7 mmol/L (3.5-5.1)
[2016-12-21 06:18] VITALS: BP 148/94
[2016-12-21 06:25] LABS: BASO # 0.1 x10^3/uL (0.0-0.2); BASO % 1 % (0-3); EOS # 0.5 x10^3/uL (0.0-0.7); EOS % 7 % (0-3); HEMATOCRIT 37.5 % (39.0-53.0); HEMOGLOBIN 12.7 g/dL (13.0-17.5); LYMPH # 1.5 x10^3/uL (1.0-4.8); LYMPH % 21 % (24-48); MEAN CORPUSCULAR HEMOGLOBIN 30 pg (25-35); MEAN CORPUSCULAR HGB CONC 34 g/dL (31-37); MEAN CORPUSCULAR VOLUME 90 fL (79-100); MONO # 0.8 x10^3/uL (0.0-1.1); MONO % 11 % (0-9); NEUT # 4.4 x10^3uL (1.8-7.7); NEUT % 60 % (31-73); PLATELET COUNT 163 x10^3/uL (140-400); RED BLOOD COUNT 4.17 x10^6/uL (4.30-5.70); RED CELL DISTRIBUTION WIDTH 15.4 % (11.5-14.5); WHITE BLOOD COUNT 7.3 x10^3/uL (4.0-11.0)
[2016-12-21] MEDS ORDERED: PANTOPRAZOLE 40 MG TABLET. PO SCH (07:30)
[2016-12-21 08:48] VITALS: BP 155/87
[2016-12-21] MEDS ORDERED: ASPIRIN 325 MG TABLET PO SCH (09:00)
[2016-12-21] MEDS ORDERED: CHOLECALCIFEROL (VITAMIN D3) 1,000 UNIT TABLET PO SCH (09:00)
[2016-12-21] MEDS ORDERED: metFORMIN 500 MG TABLET PO SCH (09:00)
[2016-12-21] MEDS ORDERED: CLOPIDOGREL BISULFATE 75 MG TABLET PO SCH (09:00)
[2016-12-21 09:10] VITALS: BP 122/78
[2016-12-21 10:12] VITALS: BP 146/75
[2016-12-21 10:14] VITALS: BP_SYST 131; BP_SYST 97; BP_DIAS 61; BP_DIAS 72
--- NOTE | 2016-12-21 12:34 | CARD ---
APPROVED REPORT EXAM: Two-dimensional and M-mode echocardiogram with Doppler and color Doppler. Other Information Quality : GoodHR: 69bpm Rhythm : NSR INDICATION CVA/TIA Echo Enhancing Agent Indication: Rule Out Septal Defect Agent/Amount Used: Agitated [id number] 2D DIMENSIONS RVDd3.2 (2.9-3.5cm)Left Atrium(2D)4.7 (1.6-4.0cm) IVSd1.1 (0.7-1.1cm)Aortic Root(2D)2.6 (2.0-3.7cm) LVDd4.5 (3.9-5.9cm)LVOT Diameter2.3 (1.8-2.4cm) PWd1.0 (0.7-1.1cm)LVDs3.5 (2.5-4.0cm) FS (%) 21.2 %SV39.8 ml Aortic Valve AoV Peak Jerry.133.5cm/sAoV VTI26.1cm AO Peak GR.7.1mmHgLVOT Peak Jerry.116.6cm/s LVOT VTI 24.67cmAO Mean GR.5mmHg AMINA (VMAX)3.91yf0ACK (VTI)3.95cm2 Mitral Valve MV E Luzerxuf15.0cm/sMV DECEL MBBR340iv MV A Pvvwwgba47.4cm/sE/A Ratio0.5 Pulmonary Vein S1 Gbbsciza42.2cm/sD2 Eafpkuun06.2cm/s LEFT VENTRICLE The left ventricle is normal size. There is normal left ventricular wall thickness. Left ventricle sy stolic function is low normal. The Ejection Fraction is estimated at 50%. Septal motion consistent wi th post-operative state. There is mild global hypokinesis of the left ventricle. RIGHT VENTRICLE The right ventricle is normal size. There is normal right ventricular wall thickness. The right ventr icular systolic function is normal. ATRIA The left atrium is mildly dilated. The right atrium size is normal. The interatrial septum is intact with no evidence for an atrial septal defect or patent foramen ovale as noted on 2-D or Doppler imagi ng. AORTIC VALVE The aortic valve is mildly thickened. The aortic valve is trileaflet. Doppler and Color Flow revealed no significant aortic regurgitation. There is no significant aortic valvular stenosis. MITRAL VALVE The mitral valve is normal in structure and function. There is no evidence of mitral valve prolapse. There is no mitral valve stenosis. Doppler and Color Flow revealed mild mitral regurgitation. TRICUSPID VALVE Doppler and Color Flow revealed trace tricuspid valve regurgitation. PULMONIC VALVE The pulmonic valve is not well visualized. Doppler and Color Flow revealed no pulmonic valvular regur gitation. There is no pulmonic valvular stenosis by spectral Doppler. GREAT VESSELS The aortic root is normal in size. The ascending aorta is normal in size. The pulmonary artery is nor mal. The IVC was not visualized. PERICARDIAL EFFUSION There is no evidence of significant pericardial effusion. Critical Notification Critical Value: No <Conclusion> The left ventricle is normal size. Left ventricle systolic function is low normal. The Ejection Fraction is estimated at 50%. The interatrial septum is intact with no evidence for an atrial septal defect or patent foramen ovale as noted on 2-D or Doppler imaging. There is no significant aortic valvular stenosis. Doppler and Color Flow revealed no significant aortic regurgitation. Doppler and Color Flow revealed mild mitral regurgitation. Doppler and Color Flow revealed trace tricuspid valve regurgitation.
--- NOTE | 2016-12-21 13:14 | PDOC ---
PROGRESS NOTES Diagnosis Problem Problems Medical Problems: (1) Weakness Status: Acute Assessment Problems Medical Problems: (1) Weakness Status: Acute 1. TIA vs CVA - being transferred to [facility] for neuro and possible MRI 2. orthostatic hypotension with pre syncope 3. CAD/CABG status with subsequent stents - angina free, continue med RX 4. paroxysmal atrial fibrillation - currently in sinus rhythm. On DAPT only due to a significant fall risk. Suggest PT eval for risk assessment. 5. hypertension - on no meds due to significant orthostasis 6. hyperlipidemia - resume statin 7. right lower extremity edema - check venous duplex Problems: Subjective patient reports feeling fine. He denies any further episodes of weakness but apparently had a pre syncopal episode while being seen by PCP this am and significant orthostatic blood pressure drop. He denies dyspnea or chest pain. Objective Echo The left ventricle is normal size. Left ventricle systolic function is low normal. The Ejection Fraction is estimated at 50%. The interatrial septum is intact with no evidence for an atrial septal defect or patent foramen ovale as noted on 2-D or Doppler imaging. There is no significant aortic valvular stenosis. Doppler and Color Flow revealed no significant aortic regurgitation. Doppler and Color Flow revealed mild mitral regurgitation. Doppler and Color Flow revealed trace tricuspid valve regurgitation. Vital Signs Date Time Temp Pulse Resp B/P (MAP) Pulse Ox O2 Delivery O2 Flow Rate FiO2 12/21/16 10:14 78 131/72 (91) 12/21/16 09:10 97.6 18 96 Room Air Intake and Output 12/22/16 07:00 Intake Total 600 ml Output Total 550 ml Balance 50 ml Intake Oral 600 ml Output Urine Total 550 ml Abdomen: Normal bowel sounds, Soft, No tenderness Heart: Regular rate, Normal S1, Normal S2 Extremities: No cyanosis, Normal pulses General: Alert, Oriented X3, Cooperative, No acute distress Lungs: Clear to auscultation Neuro: Normal speech, Other (Right lower extremity weakness) Psych/Mental Status: Mood NL Review of Relevant I have reviewed the following items antonia (where applicable) has been applied. Labs Laboratory Tests Test 12/20/16 08:42 12/20/16 10:15 12/20/16 12:43 12/20/16 17:10 White Blood Count 7.0 x10^3/uL (4.0-11.0) Red Blood Count 4.04 x10^6/uL (4.30-5.70) Hemoglobin 12.3 g/dL (13.0-17.5) Hematocrit 36.6 % (39.0-53.0) Mean Corpuscular Volume 91 fL (79-100) Mean Corpuscular Hemoglobin 30 pg (25-35) Mean Corpuscular Hemoglobin Concent 34 g/dL (31-37) Red Cell Distribution Width 15.2 % (11.5-14.5) Platelet Count 173 x10^3/uL (140-400) Neutrophils (%) (Auto) 63 % (31-73) Lymphocytes (%) (Auto) 20 % (24-48) Monocytes (%) (Auto) 10 % (0-9) Eosinophils (%) (Auto) 7 % (0-3) Basophils (%) (Auto) 1 % (0-3) Neutrophils # (Auto) 4.4 x10^3uL (1.8-7.7) Lymphocytes # (Auto) 1.4 x10^3/uL (1.0-4.8) Monocytes # (Auto) 0.7 x10^3/uL (0.0-1.1) Eosinophils # (Auto) 0.5 x10^3/uL (0.0-0.7) Basophils # (Auto) 0.1 x10^3/uL (0.0-0.2) Prothrombin Time 10.4 SEC (9.4-11.4) Prothromb Time International Ratio 1.0 (0.9-1.1) Activated Partial Thromboplast Time 25 SEC (23-33) Sodium Level 140 mmol/L (136-145) Potassium Level 4.3 mmol/L (3.5-5.1) Chloride Level 107 mmol/L (98-107) Carbon Dioxide Level 20 mmol/L (21-32) Anion Gap 13 (6-14) Blood Urea Nitrogen 25 mg/dL (8-26) Creatinine 1.6 mg/dL (0.7-1.3) Estimated GFR (Cockcroft-Gault) 41.6 BUN/Creatinine Ratio 16 (6-20) Glucose Level 183 mg/dL (70-99) Lactic Acid Level 3.9 mmol/L (0.4-2.0) 1.9 mmol/L (0.4-2.0) Calcium Level 8.9 mg/dL (8.5-10.1) Total Bilirubin 0.6 mg/dL (0.2-1.0) Aspartate Amino Transf (AST/SGOT) 22 U/L (15-37) Alanine Aminotransferase (ALT/SGPT) 22 U/L (16-63) Alkaline Phosphatase 93 U/L (46-116) Troponin I Quantitative < 0.017 ng/mL (0-0.055) Total Protein 6.6 g/dL (6.4-8.2) Albumin 3.2 g/dL (3.4-5.0) Albumin/Globulin Ratio 0.9 (1.0-1.7) Triglycerides Level 190 mg/dL (0-150) Cholesterol Level 122 mg/dL (0-200) LDL Cholesterol, Calculated 51 mg/dL (0-100) VLDL Cholesterol, Calculated 38 mg/dL (0-40) Non-HDL Cholesterol Calculated 89 mg/dL (0-129) HDL Cholesterol 33 mg/dL (40-60) Cholesterol/HDL Ratio 3.0 Urine Collection Type Unknown Urine Color Yellow Urine Clarity Clear Urine pH 5.0 Urine Specific [place] 1.020 Urine Protein Neg (NEG-TRACE) Urine Glucose (UA) Neg mg/dL (NEG) Urine Ketones (Stick) Trace mg/dL (NEG) Urine Blood Neg (NEG) Urine Nitrite Neg (NEG) Urine Bilirubin Neg (NEG) Urine Urobilinogen Dipstick 0.2 mg/dL (0.2 mg/dL) Urine Leukocyte Esterase Neg (NEG) Urine RBC Rare /HPF (0-2) Urine WBC 0 /HPF (0-4) Urine Squamous Epithelial Cells Occ /LPF Urine Bacteria 0 /HPF (0-FEW) Glucose (Fingerstick) 112 mg/dL (70-99) Test 12/20/16 20:36 12/21/16 05:35 12/21/16 06:18 12/21/16 11:26 Glucose (Fingerstick) 123 mg/dL (70-99) 138 mg/dL (70-99) Sodium Level 140 mmol/L (136-145) Potassium Level 4.7 mmol/L (3.5-5.1) Chloride Level 108 mmol/L (98-107) Carbon Dioxide Level 25 mmol/L (21-32) Anion Gap 7 (6-14) Blood Urea Nitrogen 23 mg/dL (8-26) Creatinine 1.1 mg/dL (0.7-1.3) Estimated GFR (Cockcroft-Gault) 64.1 Glucose Level 115 mg/dL (70-99) Calcium Level 8.9 mg/dL (8.5-10.1) White Blood Count 7.3 x10^3/uL (4.0-11.0) Red Blood Count 4.17 x10^6/uL (4.30-5.70) Hemoglobin 12.7 g/dL (13.0-17.5) Hematocrit 37.5 % (39.0-53.0) Mean Corpuscular Volume 90 fL (79-100) Mean Corpuscular Hemoglobin 30 pg (25-35) Mean Corpuscular Hemoglobin Concent 34 g/dL (31-37) Red Cell Distribution Width 15.4 % (11.5-14.5) Platelet Count 163 x10^3/uL (140-400) Neutrophils (%) (Auto) 60 % (31-73) Lymphocytes (%) (Auto) 21 % (24-48) Monocytes (%) (Auto) 11 % (0-9) Eosinophils (%) (Auto) 7 % (0-3) Basophils (%) (Auto) 1 % (0-3) Neutrophils # (Auto) 4.4 x10^3uL (1.8-7.7) Lymphocytes # (Auto) 1.5 x10^3/uL (1.0-4.8) Monocytes # (Auto) 0.8 x10^3/uL (0.0-1.1) Eosinophils # (Auto) 0.5 x10^3/uL (0.0-0.7) Basophils # (Auto) 0.1 x10^3/uL (0.0-0.2) Medications Current Medications Ondansetron HCl (Zofran) 4 mg PRN Q4HRS PRN IV NAUSEA/VOMITING; Start 12/20/16 at 10:45; Stop 12/21/16 at 10:44; Status DC Aspirin (Kristopher Aspirin) 325 mg DAILY PO Last administered on 12/21/16t 08:07; Start 12/21/16 at 09:00; Stop 12/21/16 at 12:45; Status DC Vitamin D (Vitamin D3) 1,000 unit DAILY PO Last administered on 12/21/16 08:07 ; Start 12/21/16 at 09:00; Stop 12/21/16 at 12:45; Status DC Clopidogrel Bisulfate (Plavix) 75 mg DAILY PO Last administered on 12/21/16 08 :07; Start 12/21/16 at 09:00; Stop 12/21/16 at 12:45; Status DC Metformin HCl (Glucophage) 500 mg BIDWMEALS PO ; Start 12/20/16 at 17:00; Stop 12/20/16 at 17:00; Status DC Atorvastatin Calcium (Lipitor) 40 mg QHS PO Last administered on 12/20/16 20: 37; Start 12/20/16 at 21:00; Stop 12/21/16 at 12:45; Status DC Pantoprazole Sodium (Protonix) 40 mg DAILYAC PO Last administered on 12/21/16 07:30; Start 12/21/16 at 07:30; Stop 12/21/16 at 12:45; Status DC Dextrose 12.5 gm PRN Q15MIN PRN IV SEE COMMENTS; Start 12/20/16 at 16:45; Stop 12/21/16 at 12:45; Status DC Enoxaparin Sodium (Lovenox) 40 mg Q24H SQ Last administered on 12/20/16 20:37 ; Start 12/20/16 at 21:00; Stop 12/21/16 at 12:45; Status DC Metformin HCl (Glucophage) 500 mg BIDWMEALS PO Last administered on 12/21/16 10:16; Start 12/21/16 at 09:00; Stop 12/21/16 at 12:45; Status DC Active Scripts Active Reported Vitamin D3 (Cholecalciferol (Vitamin D3)) 1,000 Unit Tablet 1 Tab PO DAILY LAST DOSE GIVEN: DATE: TIME: NEXT DOSE DUE: DATE: TIME: Aspirin 325 Mg Tablet 1 Tab PO DAILY LAST DOSE GIVEN: DATE: TIME: NEXT DOSE DUE: DATE: TIME: Clopidogrel (Clopidogrel Bisulfate) 75 Mg Tablet 1 Tab PO DAILY LAST DOSE GIVEN: DATE: TIME: NEXT DOSE DUE: DATE: TIME: Metformin Hcl 500 Mg Tablet 1 Tab PO BID LAST DOSE GIVEN: DATE: TIME: NEXT DOSE DUE: DATE: TIME: Atorvastatin Calcium 40 Mg Tablet 1 Tab PO DAILY LAST DOSE GIVEN: DATE: TIME: NEXT DOSE DUE: DATE: TIME: Omeprazole 40 Mg Capsule.dr 40 Mg PO DAILY LAST DOSE GIVEN: DATE: TIME: NEXT DOSE DUE: DATE: TIME: Vitals/I & O Vital Sign - Last 24 Hours 12/20/16 12/20/16 12/20/16 12/20/16 13:19 15:19 19:56 20:00 Temp 97.5 97.5 Pulse 71 69 Resp 20 20 B/P (MAP) 159/78 (105) 157/88 (111) Pulse Ox 95 97 O2 Delivery Room Air Room Air Room Air Room Air 12/20/16 12/21/16 12/21/16 12/21/16 23:56 06:18 07:45 08:48 Temp 97.6 97.5 Pulse 72 76 77 Resp 18 15 B/P (MAP) 148/94 (112) 155/87 (109) Pulse Ox 97 98 O2 Delivery Room Air Room Air Room Air 12/21/16 12/21/16 12/21/16 12/21/16 09:10 10:12 10:14 10:14 Temp 97.6 Pulse 82 74 97 94 Resp 18 B/P (MAP) 122/78 (93) 146/75 (98) 97/61 (73) Pulse Ox 96 O2 Delivery Room Air 12/21/16 10:14 Pulse 78 B/P (MAP) 131/72 (91) Intake and Output 12/21/16 12/21/16 12/22/16 15:00 23:00 07:00 Intake Total 600 ml Output Total 550 ml Balance 50 ml HOWARD MORENO APRN Dec 21, 2016 13:14
--- NOTE | 2016-12-22 00:22 | DS ---
DATE OF DISCHARGE: 12/21/2016 HISTORY OF PRESENT ILLNESS: The patient is an 81-year-old male patient who was admitted yesterday through the Emergency Room with the complaints of right lower extremity weakness and the right arm numbness that started at around 7:30 yesterday morning, eventually his leg give away or stated for a couple of minutes and sat down and it resolved. This occurred about 3 additional times and he called #[phone]. When he arrived, he was found to be also hypoxic with oxygen saturation in the 80s; however, by the time he arrived to the Emergency Room, all his symptoms have subsided and he did well throughout the rest of the day. However, this morning, he again developed same complaint of weakness and was dragging his right lower extremity and also was unable to use his right hand. He also had a syncopal episode when he stood to use the urinal and fell, luckily back on his bed during which he became extremely diaphoretic and we did check his orthostatics and it showed that he has marked postural hypotension with difference between lying and standing blood pressure of more than 50 mmHg. We did arrange for him to have a carotid Doppler, which was unremarkable and showed mild plaquing involving both carotid systems without any flow-limiting stenosis. However, given that and his CT scan of the head was also unremarkable and showed no acute intracranial process; however, given that this is time the fourth time he has a TIA with the same presentation, I decided to transfer him to [facility] for further evaluation and to do an MRI and MRA and to consult the neurologist. He is already on aspirin and Plavix and he is also on atorvastatin, but even then he continues to have this problem. PHYSICAL EXAMINATION: GENERAL: When I saw him this afternoon prior to transfer, he was sitting on the edge of the bed comfortably in no apparent respiratory distress and slightly pale, not jaundiced, cyanosis, or thyromegaly. No jugular venous distention, no limb edema. VITAL SIGNS: His heart rate was 78, blood pressure was 131/72, temperature was 97.5, respiratory rate was 18 and oxygen saturation was 96% on room air. HEAD, EYES, EARS, NOSE AND THROAT: Normocephalic, atraumatic. NECK: His neck was supple. HEART: Showed normal first and second heart sounds with no gallop, rub or murmur. CHEST: Clear to auscultation. No crepitation or rhonchi. ABDOMEN: Distended, soft, nontender. No guarding or rigidity. No organomegaly. Hernial orifice is intact. Bowel sound is normal. NEUROLOGIC: He was awake, alert, responding appropriately. Cranial nerves are intact. He definitely has a mild weakness in his right upper and right lower extremity. He has no evidence of any cerebellar dysfunction. There is no dysdiadochokinesis. The [id number] test was fine and Romberg's test was negative; however, he definitely has marked postural hypotension with a difference between systolic pressure lying and standing was more than 50 mmHg. LABORATORY AND DIAGNOSTIC DATA: His lab work today showed a white cell count of 7,300, hemoglobin 12.7, hematocrit 37.5, MCV 90, and platelet count of 163,000 with normal manual differential. His chemistry showed a serum sodium of 140, potassium 4.7, chloride 108, bicarbonate 25, anion gap of 7, BUN 23, creatinine 1.1, estimated GFR was 64 mL per minute. His glucose 115 and calcium was 8.9. His prothrombin time was 10.4, INR of 1, aPTT was 25. Urinalysis was essentially unremarkable. He did have also an echocardiogram, which showed that his left ventricle is normal in size. The ventricle systolic function is normal and ejection fraction is estimated at 50% and intra-arterial septum is intact with no evidence of an atrial septal defect or patent foramen ovale as noted in three dimensional Doppler imaging. There is no significant aortic valvular stenosis. Doppler and the color flow revealed no significant aortic regurgitation and mild mitral regurgitation and trace tricuspid valve regurgitation. ASSESSMENT AND PLAN: The patient was transferred to [facility] with recurrent transient ischemic attacks with right-sided weakness, severe syncopal episode with marked postural hypotension. Other medical problems included coronary artery disease, status post percutaneous coronary intervention with stent deployment, 2009. He also had left heart catheterization and underwent coronary artery bypass surgery at the end of last year, chronic obstructive pulmonary disease, deep vein thrombosis and pulmonary embolism, atrial fibrillation, hypertension, hyperlipidemia. He is also known to have chronic lymphocytic leukemia. ELAIEN MURRAY MD DR: KATRIN/moe JOB#: [id number] / [id number]
--- NOTE | 2016-12-22 02:29 | CONS ---
DATE OF CONSULTATION: 12/20/2016 REFERRING PHYSICIAN: Dr. Melgar. REASON FOR CONSULTATION: Rule out TIA versus stroke. HISTORY OF PRESENT ILLNESS: This is an 81-year-old male, who was admitted through the Emergency Room this morning after he presented with recurrent spells described as a sudden onset of numbness of the right upper extremity and weakness of the right lower extremity, lasted a few minutes. Those episodes started at 7:30 in the morning of admission. On arrival to the Emergency Room, the patient stated his symptoms have resolved. He denies headaches, visual disturbances, nausea, vomiting, chest pain, shortness of breath or palpitation, dysarthria, dysphagia, or diplopia. His oxygen saturation on arrival was 96%. PAST MEDICAL HISTORY: Significant for coronary artery disease status post stent placement in 2009, COPD, deep venous thrombosis, pulmonary embolism, atrial fibrillation, hyperlipidemia, hypertension, and history of chronic lymphocytic leukemia. PAST SURGICAL HISTORY: Significant for coronary artery bypass graft, appendectomy, and skin cancer. FAMILY HISTORY: Father had coronary artery disease. Mother had coronary artery disease and she from myocardial infarction at age 87. SOCIAL HISTORY: The patient is . He has 2 children. He denies smoking, alcohol drinking, or illicit drug use. REVIEW OF SYSTEMS: A 10-point review of system was performed as mentioned above in history of present illness, otherwise unremarkable. CURRENT MEDICATIONS: Plavix 75 mg daily, vitamin D 1000 units daily, aspirin 325 mg daily, Protonix 40 mg p.o. daily, and Lipitor 40 mg at bedtime. ALLERGIES: No known drug allergies. PHYSICAL EXAMINATION: GENERAL: Well-developed, well-nourished white male, not in acute distress. He weighs 210. VITAL SIGNS: Blood pressure 157/78, respiratory rate 20, pulse is 71, temperature 97.5, oxygen saturation 95% on room air. HEENT: Normocephalic, atraumatic, otherwise unremarkable. NECK: Supple. Negative for carotid bruit, lymphadenopathy, or thyromegaly. LUNGS: Clear to A and P. CARDIOVASCULAR: Regular rate and rhythm, normal S1, S2. There is no S3, S4, or murmur. ABDOMEN: Soft. Bowel sounds positive. EXTREMITIES: Negative for cyanosis, clubbing, or pitting edema. NEUROLOGICAL: MENTAL STATUS: The patient is alert and oriented x 3. The speech is fluent. There is no language dysfunction. Memory, judgment, and abstract thinking are normal. The patient denies hallucination or delusion. CRANIAL NERVES: Visual [place] are full. The pupils are reactive to light and accommodation. The extraocular movements are intact. There is no nystagmus. There is no facial, motor, or sensory deficit. Hearing is intact bilaterally. The palate is elevated symmetrically. Sternocleidomastoid muscles are powerful bilaterally. The patient shrugs his shoulders symmetrically and protrudes his tongue in the midline without fasciculation or atrophy. MOTOR: No focal muscle bulk was seen. The tone was normal. The strength was 5/5 throughout. Sensory examination revealed normal pinprick, light touch, vibratory, and position senses. Deep tendon reflexes were symmetric and hypoactive with absent Achilles responses. Gait and coordination were normal. LABORATORY DATA: CBC revealed white blood cells of 7000, hemoglobin 12.3, hematocrit 36.6, and platelet count 173,000. Chemistry revealed sodium of 140, potassium 4.3, chloride 107, CO2 of 20, BUN 25, creatinine 1.6, glucose 183, and calcium 8.9. Liver enzymes are normal. PT is 10.4, INR 1, and PTT was 25. DIAGNOSTIC DATA: An unenhanced CT scan revealed no acute intracranial process, otherwise unremarkable. Carotid Doppler study revealed mild plaquing bilaterally without significant stenosis and chest x-ray unremarkable. IMPRESSION: 1. Questionable episodes described as numbness of the right upper extremity and weakness of the right lower extremity with neurological examination. 2. Multiple risk factors of stroke includes coronary artery disease, paroxysmal atrial fibrillation, hypertension, hyperlipidemia, hyperglycemia. RECOMMENDATIONS: 1. Continue with current management with aspirin, Plavix, and add Lovenox as preventive protocol for a DVT. 2. Cardiology consult. 3. Treat the underlying hyperglycemia. M Mike RODRIGUEZ MD DR: SHALA/moe JOB#: [id number] / [id number]
== END 2016-12-21 12:40 | disposition short-term general hospital (02) | DRG 69 ==
LOC: ER 08:16 → 1 SOUTH 10:43
PROVIDERS: ADMIT Internal Medicine; ATTEND Internal Medicine
DX: G45.9 Transient cerebral ischemic attack, unspecified (principal); N17.0 Acute kidney failure with tubular necrosis; C91.10 Chronic lymphocytic leukemia of B-cell type not having achieved remission; E11.65 Type 2 diabetes mellitus with hyperglycemia; I48.0 Paroxysmal atrial fibrillation; I95.1 Orthostatic hypotension; E78.00 Pure hypercholesterolemia, unspecified; E78.5 Hyperlipidemia, unspecified; I10 Essential (primary) hypertension; I25.10 Atherosclerotic heart disease of native coronary artery without angina pectoris; J44.9 Chronic obstructive pulmonary disease, unspecified; K21.9 Gastro-esophageal reflux disease without esophagitis; I25.5 Ischemic cardiomyopathy; N40.0 Benign prostatic hyperplasia without lower urinary tract symptoms; M19.90 Unspecified osteoarthritis, unspecified site; R09.02 Hypoxemia; Z86.718 Personal history of other venous thrombosis and embolism; Z79.01 Long term (current) use of anticoagulants; Z79.82 Long term (current) use of aspirin; Z82.3 Family history of stroke; Z90.49 Acquired absence of other specified parts of digestive tract; Z82.49 Family history of ischemic heart disease and other diseases of the circulatory system; Z85.828 Personal history of other malignant neoplasm of skin; Z86.711 Personal history of pulmonary embolism; Z87.891 Personal history of nicotine dependence; Z95.1 Presence of aortocoronary bypass graft; Z95.5 Presence of coronary angioplasty implant and graft; Z79.4 Long term (current) use of insulin
CPT/HCPCS: 36415; 70450; 71010; 80048; 80053; 80061; 81001; 82947; 83605; 84484; 85025; 85610; 85730; 93005; 93880; C8929; J1650; 99285-25

== ENCOUNTER → 2017-11-01 | Outpatient (CLI) | payer OTHER ==
[2016-12-21 10:14] VITALS: BP 97/61
[~2017-11-01] MED LIST changes: +ASPI325T8 PO; +CHOL10003 PO; +CLOP75TA PO; -METF500T4 PO; +METF500T5 PO
--- NOTE | 2017-11-01 08:21 | RAD ---
Chest, 2 views, 11/01/2017: HISTORY: Shortness of breath Comparison is made to study of 12/20/2016. There has been a previous median sternotomy. The heart size is normal. There is calcific plaquing of the aorta and coronary arteries. No pulmonary infiltrate is seen. There is no evidence of pleural fluid. Moderate scattered spurs are present in the spine. IMPRESSION: No acute cardiopulmonary abnormality is detected. Electronically signed by: Sam Demarco MD (11/01/2017 8:17 AM) [facility]
== END | disposition home or self-care (01) ==
LOC: DXRAD 07:39
PROVIDERS: ATTEND Physician Assistant Medical
DX: R06.02 Shortness of breath (principal); I13.10 Hypertensive heart and chronic kidney disease without heart failure, with stage 1 through stage 4 chronic kidney disease, or unspecified chronic kidney disease; E11.29 Type 2 diabetes mellitus with other diabetic kidney complication; N18.2 Chronic kidney disease, stage 2 (mild); E78.5 Hyperlipidemia, unspecified; E78.00 Pure hypercholesterolemia, unspecified; I48.0 Paroxysmal atrial fibrillation; Z90.49 Acquired absence of other specified parts of digestive tract; Z86.711 Personal history of pulmonary embolism; Z86.718 Personal history of other venous thrombosis and embolism; Z85.828 Personal history of other malignant neoplasm of skin; Z87.891 Personal history of nicotine dependence; Z79.4 Long term (current) use of insulin
CPT/HCPCS: 71046

== ENCOUNTER → 2017-11-22 | Outpatient (CLI) | payer OTHER ==
[2016-12-21 10:14] VITALS: BP 97/61
[~2017-11-22] MED LIST changes: +REGADENOSON 0.4 MG/5 ML DISP.SYRIN. IV ONE
--- NOTE | 2017-11-22 10:59 | CARD ---
MR#: [id number] Date of Study: 11/22/2017 Ordering Physician: AARON AGUILAR, Referring Physician: Linnette MADRID: MARYLU Johnson APPROVED REPORT EXAM: Two-dimensional and M-mode echocardiogram with Doppler and color Doppler. Other Information Quality : AverageHR: 61bpm Technically limited study due to CABG. INDICATION Cardiac Disease: CAD Surgery/Intervention CABG: Date: 2015 2D DIMENSIONS RVDd2.9 (2.9-3.5cm)Left Atrium(2D)3.9 (1.6-4.0cm) IVSd1.4 (0.7-1.1cm)Aortic Root(2D)3.4 (2.0-3.7cm) LVDd4.3 (3.9-5.9cm)LVOT Diameter2.5 (1.8-2.4cm) PWd1.3 (0.7-1.1cm)LVDs3.1 (2.5-4.0cm) FS (%) 28.7 %SV47.3 ml LVEF(%)55.6 (>50%) Aortic Valve AoV Peak Jerry.125.0cm/sAoV VTI27.7cm AO Peak GR.6.3mmHgLVOT Peak Jerry.104.1cm/s LVOT VTI 23.71cmAO Mean GR.4mmHg AMINA (VMAX)3.39hx9GJK (VTI)4.06cm2 Mitral Valve MV E Ygxqceha32.2cm/sMV E Peak Gr.46mmHg MV DECEL [id number] A Ezaykfbl12.4cm/s E/A Ratio0.6 Pulmonary Valve PV Peak Ghhkiaol73.3cm/sPV Peak Grad.3mmHg Tricuspid Valve TR P. Waqkmdpd540ar/sTR Peak Gr.5mmHg Pulmonary Vein S1 Azjjjepu71.6cm/sD2 Lxrwuiqw60.1cm/s LEFT VENTRICLE The left ventricle is normal size. There is mild concentric left ventricular hypertrophy. The left ve ntricular systolic function is normal and the ejection fraction is within normal range. EF 55% Septal motion consistent with post-operative state, otherwise grossly normal wall motion. Transmitral Doppl er flow pattern is Grade I-abnormal relaxation pattern. RIGHT VENTRICLE The right ventricle is normal size. The right ventricular systolic function is normal. ATRIA The left atrium size is normal. The right atrium size is normal. The interatrial septum is intact wit h no evidence for an atrial septal defect or patent foramen ovale as noted on 2-D or Doppler imaging. AORTIC VALVE The aortic valve is thickened but opens well. Doppler and Color Flow revealed no significant aortic r egurgitation. There is no significant aortic valvular stenosis. There is no aortic valvular vegetatio n. MITRAL VALVE The mitral valve is thickened but opens well. There is no evidence of mitral valve prolapse. There is no mitral valve stenosis. Doppler and Color-flow revealed mild mitral regurgitation. TRICUSPID VALVE The tricuspid valve is not well visualized. Doppler and Color Flow revealed trace tricuspid regurgita tion. There is no tricuspid valve prolapse or vegetation. There is no tricuspid valve stenosis. PULMONIC VALVE The pulmonic valve is not well visualized. Doppler and Color Flow revealed no pulmonic valvular regur gitation. There is no pulmonic valvular stenosis. GREAT VESSELS The aortic root is normal size. The aortic root displays mild sclerocalcific changes of the aortic ro ot. The IVC was not visualized. PERICARDIAL EFFUSION There is no pleural effusion. There is no evidence of significant pericardial effusion. Critical Notification Critical Value: No <Conclusion> The left ventricular systolic function is normal and the ejection fraction is within normal range. EF 55% Septal motion consistent with post-operative state, otherwise grossly normal wall motion. Signed by : Jovani Salazar, Electronically Approved : 11/22/2017 10:58:39
--- NOTE | 2017-11-22 12:50 | RAD ---
MR#: [id number] Date of Study: 11/22/2017 Ordering Physician: AARON AGUILAR Referring Physician: KATHIA MADRID Tech: RT Yadira Dominguez) (N) APPROVED REPORT Test Type: Pharmacological Stress Nurse/Tech: RT Alberto (Jaqueline) (N) Test Indications: coronary artery disease involving coronary bypass graft of huslia heart without a ngina pectoris Cardiac History: 2 bypass 2 years ago and 3 stents Medications: see EHR Medical History: Hypertension, COPD, Quit smoking 40 years ago, TIA x 2, diabetic Resting ECG: SB, 1st degree AV block, Left BBB Resting Heart Rate: 59 bpm Resting Blood Pressure: 164/81mmHg Pretest Chest Pain: None Nurse/Tech Notes Consent: The procedure was explained to the patient in lay terms. Informed consent was witnessed. Aj eout was entered into [employer]. History and Stress Test performed by RT Alberto (R) (N) Pharm. Details Pharmacologic stress testing was performed using 0.4mg per 5ml of regadenoson given intravenously ove r 7-10 seconds. POST EXERCISE Reason for Termination: Infusion complete Max HR: 75 bpm Max Blood Pressure: 138/67mmHg Blood Pressure response to exercise: Normal blood pressure response during stress. Chest Pain: No. INTERPRETATION Stress EKG Conclusion: No acute changes were noted. Imaging Protocol IMAGE PROTOCOL: Rest Tc-99m/stress Tc-99m 1 day Rest: Stress: Viability: Radiopharm.Tc99m PxvmioxzmLt54q Sestamibi Dose11.3mCi 34.5mCi Duration 15min. 10min. Img Date 11/22/2017 11/22/2017 Inj-Img Itqw90xkd. 60min. Rest Admin Site:IV - Left AntecubitalAdministrator: RT Yadira Dominguez)(N) Stress Admin Site: IV - Left WristAdministrator: RT Yadira Dominguez)(N) STRESS DATA End Diast. Vol.96.0mlAv. Heart Rate63.0bpm LVEDV index BSA2.0mlCardiac Output0.1L/min End Syst. Vol.28.0mlCO Index BSA4.3L/min LVESV index BSA0.0mlMyocardial Xqtf734.0g Eject. Ulqmbipa91.0% Stress Rates Pk. Fill Rate2.07EDV/secLVtime Pk. Fill 249.46msec Pk. Empty Rate3.38ESV/secLVtime Pk. Nlkkp787.94msec 1/3 Pk. Fill0.93EDV/sec Stress Scores Regional WT2.00Summed WT17.00 Regional WM0.00Summed WM3.00 The rest and stress images show normal perfusion, normal contraction and thickening. LV Perf. Quant 17 Seg. SSS3.00 17 Seg. SRS1.00 17 Seg. SDS3.00 Stress Defect Extent (% LAD)0.00Rest Defect Extent (% LAD)0.00Rev. Defect Extent (% LAD)0.00 Stress Defect Extent (% LCX) 8.80Rest Defect Extent (% LCX)0.00Rev. Defect Extent (% LCX)1.30 Stress Defect Extent (% RCA)0.00Rest Defect Extent (% RCA)0.00Rev. Defect Extent (% RCA)0.00 Stress Defect Extent (% RAMSES)1.50Rest Defect Extent (% RAMSES)0.00Rev. Defect Extent (% RAMSES)0.20 Other Information Quality:Good Risk Assessment: Low Risk Conclusion 1. No evidence of EKG changes with stress testing. 2. Normal perfusion at stress/rest. 3. Low risk study. 4. Mild subdiaphragmatic attenuation artifact. 5. EF > 60%. Signed by : Jovani Salazar, Electronically Approved : 11/22/2017 12:49:22
== END | disposition home or self-care (01) ==
LOC: NM 08:01
PROVIDERS: ATTEND Internal Medicine Cardiovascular Disease
DX: I25.10 Atherosclerotic heart disease of native coronary artery without angina pectoris (principal); J44.9 Chronic obstructive pulmonary disease, unspecified; I34.0 Nonrheumatic mitral (valve) insufficiency; I25.2 Old myocardial infarction; I12.9 Hypertensive chronic kidney disease with stage 1 through stage 4 chronic kidney disease, or unspecified chronic kidney disease; E11.22 Type 2 diabetes mellitus with diabetic chronic kidney disease; N18.2 Chronic kidney disease, stage 2 (mild); E78.2 Mixed hyperlipidemia; E78.00 Pure hypercholesterolemia, unspecified; I48.0 Paroxysmal atrial fibrillation; Z79.4 Long term (current) use of insulin; Z86.711 Personal history of pulmonary embolism; Z87.891 Personal history of nicotine dependence; Z86.73 Personal history of transient ischemic attack (TIA), and cerebral infarction without residual deficits; Z86.718 Personal history of other venous thrombosis and embolism; Z85.828 Personal history of other malignant neoplasm of skin; Z90.49 Acquired absence of other specified parts of digestive tract; Z82.49 Family history of ischemic heart disease and other diseases of the circulatory system
CPT/HCPCS: 78452; 93017; 93306; 96374; 96375; 96376; A9500; J2785

== ENCOUNTER 2018-01-07 08:11 | Emergency (ER) | payer OTHER ==
[~2018-01-07] VITALS: Ht 188 cm; Wt 95.3 kg
[2018-01-07 08:11] VITALS: BP 89/51
[~2018-01-07 08:11] MED LIST changes: +METF500T16 PO; -METF500T5 PO; -REGADENOSON 0.4 MG/5 ML DISP.SYRIN. IV ONE
--- NOTE | 2018-01-07 08:58 | EKG ---
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
[2018-01-07] MEDS ORDERED: IV NORMAL SALINE 1,000ML 1,000 ML IV SCH (09:00)
[2018-01-07 09:10] LABS: BASO # 0.1 x10^3/uL (0.0-0.2); BASO % 1 % (0-3); EOS # 0.3 x10^3/uL (0.0-0.7); EOS % 2 % (0-3); HEMATOCRIT 41.2 % (39.0-53.0); HEMOGLOBIN 13.5 g/dL (13.0-17.5); LYMPH # 2.1 x10^3/uL (1.0-4.8); LYMPH % 16 % (24-48); MEAN CORPUSCULAR HEMOGLOBIN 31 pg (25-35); MEAN CORPUSCULAR HGB CONC 33 g/dL (31-37); MEAN CORPUSCULAR VOLUME 94 fL (79-100); MONO # 1.1 x10^3/uL (0.0-1.1); MONO % 9 % (0-9); NEUT # 9.4 x10^3uL (1.8-7.7); NEUT % 73 % (31-73); PLATELET COUNT 265 x10^3/uL (140-400); RED CELL DISTRIBUTION WIDTH 14.8 % (11.5-14.5); WHITE BLOOD COUNT 12.9 x10^3/uL (4.0-11.0)
[2018-01-07 09:18] LABS: ALBUMIN 3.2 g/dL (3.4-5.0); ALBUMIN/GLOBULIN RATIO 0.9 (1.0-1.7); CALCIUM 8.5 mg/dL (8.5-10.1); CREATININE 1.9 mg/dL (0.7-1.3); POTASSIUM 4.3 mmol/L (3.5-5.1); TOTAL BILIRUBIN 0.7 mg/dL (0.2-1.0); TOTAL PROTEIN 6.9 g/dL (6.4-8.2)
--- NOTE | 2018-01-07 09:35 | RAD ---
CHEST AP ONLY Clinical Indication: short of breath x 2 days Comparison: Two-view chest November 01, 2017. Findings: Median sternotomy wires and changes of CABG. The cardiomediastinal silhouette is normal. Lungs are clear. There is no pneumothorax. No pleural effusion is appreciated. No acute bone abnormality. IMPRESSION: No acute cardiopulmonary process. Electronically signed by: Tejas Rodney MD (01/07/2018 9:32 AM) [facility]
--- NOTE | 2018-01-07 09:49 | PHYS DOC ---
Past History Past Medical History: CAD, Diabetes, High Cholesterol Past Surgical History: Coronary Bypass Surgery, Other Smoking: Non-smoker Alcohol Use: None Drug Use: None Adult General Chief Complaint Chief Complaint: RECTAL BLEED HPI HPI Patient is an 82-year-old male who presents with complaint of rectal bleeding at home. Patient indicates that he had been having some diarrhea and states that he thinks he had some blood mixed with his diarrhea yesterday. He states that this morning, that he had a bowel movement that had blood mixed in with it and then had passed a bit of blood thereafter. Patient states that he later passed a bit more blood that was dark maroon in color with some clots. He states that while he was having the bowel movement he had some abdominal cramping. He denies any abdominal pain at this time. He also denies any nausea or vomiting. He does indicate that he has been a little bit short of breath with exertion recently but does admit that he is on home oxygen. Review of Systems Review of Systems Constitutional: Denies fever or chills [] Respiratory: Reports mild dyspnea on exertion[] Cardiovascular: Denies chest pain[] GI: Reports abdominal cramping with diarrhea and rectal bleeding[] Musculoskeletal: Denies back pain or joint pain [] Integument: Denies rash or skin lesions [] Neurologic: Denies headache, focal weakness or sensory changes [] All other systems were reviewed and found to be within normal limits, except as documented in this note. Current Medications Current Medications Current Medications Medications (Trade) Dose Ordered Sig/[facility]ly [facility] Start Time Stop Time Status Last Admin Dose Admin Sodium Chloride 1,000 ml @ 1,000 mls/hr Q1H 01/07/18 09:00 01/07/18 09:59 01/07/18 09:00 1,000 MLS/HR Allergies Allergies Allergies Coded Allergies Type Severity Reaction Last Updated Verified No Known Drug Allergies 08/16/16 No Physical Exam Physical Exam Constitutional: Well developed, well nourished, no acute distress, non-toxic appearance. [] HENT: Normocephalic, atraumatic, bilateral external ears normal, oropharynx moist, no oral exudates, nose normal. [] Eyes: PERRLA, EOMI, conjunctiva normal, no discharge. [] Neck: Normal range of motion, no tenderness, supple, no stridor. [] Cardiovascular:Heart rate regular rhythm [] Lungs & Thorax: Bilateral breath sounds clear to auscultation [] Abdomen: Bowel sounds normal, soft, no tenderness. [] Skin: Warm, dry, no erythema, no rash. [] Back: No tenderness, no CVA tenderness. [] Extremities: No tenderness, no cyanosis, no clubbing, ROM intact, no edema. [] Neurologic: Alert and oriented X 3, normal motor function, normal sensory function, no focal deficits noted. [] Current Patient Data Vital Signs Vital Signs Date Time Temp Pulse Resp B/P (MAP) Pulse Ox O2 Delivery O2 Flow Rate FiO2 01/07/18 08:11 99 Nasal Cannula 2.0 01/07/18 08:11 75 12 Lab Results Laboratory Tests Test 01/07/18 08:30 White Blood Count 12.9 x10^3/uL (4.0-11.0) H Red Blood Count 4.40 x10^6/uL (4.30-5.70) Hemoglobin 13.5 g/dL (13.0-17.5) Hematocrit 41.2 % (39.0-53.0) Mean Corpuscular Volume 94 fL (79-100) Mean Corpuscular Hemoglobin 31 pg (25-35) Mean Corpuscular Hemoglobin Concent 33 g/dL (31-37) Red Cell Distribution Width 14.8 % (11.5-14.5) H Platelet Count 265 x10^3/uL (140-400) Neutrophils (%) (Auto) 73 % (31-73) Lymphocytes (%) (Auto) 16 % (24-48) L Monocytes (%) (Auto) 9 % (0-9) Eosinophils (%) (Auto) 2 % (0-3) Basophils (%) (Auto) 1 % (0-3) Neutrophils # (Auto) 9.4 x10^3uL (1.8-7.7) H Lymphocytes # (Auto) 2.1 x10^3/uL (1.0-4.8) Monocytes # (Auto) 1.1 x10^3/uL (0.0-1.1) Eosinophils # (Auto) 0.3 x10^3/uL (0.0-0.7) Basophils # (Auto) 0.1 x10^3/uL (0.0-0.2) Prothrombin Time 10.0 SEC (9.4-11.4) Prothrombin Time INR 1.0 (0.9-1.1) Sodium Level 141 mmol/L (136-145) Potassium Level 4.3 mmol/L (3.5-5.1) Chloride Level 106 mmol/L (98-107) Carbon Dioxide Level 21 mmol/L (21-32) Anion Gap 14 (6-14) Blood Urea Nitrogen 27 mg/dL (8-26) H Creatinine 1.9 mg/dL (0.7-1.3) H Estimated GFR (Cockcroft-Gault) 34.0 BUN/Creatinine Ratio 14 (6-20) Glucose Level 231 mg/dL (70-99) H Calcium Level 8.5 mg/dL (8.5-10.1) Total Bilirubin 0.7 mg/dL (0.2-1.0) Aspartate Amino Transferase (AST) 23 U/L (15-37) Alanine Aminotransferase (ALT) 33 U/L (16-63) Alkaline Phosphatase 124 U/L (46-116) H Total Protein 6.9 g/dL (6.4-8.2) Albumin 3.2 g/dL (3.4-5.0) L Albumin/Globulin Ratio 0.9 (1.0-1.7) L EKG EKG EKG demonstrates sinus rhythm with rate of 79. There is left bundle branch block present. Prior EKG dated 12/20/2016 was reviewed and no significant change from that study. Radiology/Procedures Radiology/Procedures [] Course & Med Decision Making Course & Med Decision Making Pertinent Labs and Imaging studies reviewed. (See chart for details) Upon completion of workup, findings of workup have been reviewed with patient and family. Or static vital signs have been obtained and even after a liter of fluids, patient significantly orthostatic. Given that GI specialty is not available at this facility, [facility] was contacted and Dr. Martinez will accept patient in transfer. Dragon Disclaimer Dragon Disclaimer This electronic medical record was generated, in whole or in part, using a voice recognition dictation system. Departure Departure: Impression: Primary Impression: Lower GI bleed Additional Impression: Orthostatic hypotension Disposition: XFER SHT-TRM HOSP Condition: IMPROVED Referrals: DAGO HUNT MD (PCP) Problem Qualifiers VALDO GAXIOLA Jr. DO Jan 07, 2018 09:49
[2018-01-07] MEDS ORDERED: PANTOPRAZOLE IV 40 MG VIAL. IVP ONE (10:15)
== END 2018-01-07 11:50 | disposition short-term general hospital (02) ==
LOC: ER 08:11
DX: K92.2 Gastrointestinal hemorrhage, unspecified (principal); I95.1 Orthostatic hypotension; R19.7 Diarrhea, unspecified; I25.810 Atherosclerosis of coronary artery bypass graft(s) without angina pectoris; E11.9 Type 2 diabetes mellitus without complications; E78.00 Pure hypercholesterolemia, unspecified
CPT/HCPCS: 36415; 71045; 80053; 85025; 85610; 86850; 86900; 86901; 93005; 96361; 96374; 99285; C9113; J7030

== ENCOUNTER → 2019-01-30 | Outpatient (CLI) | payer OTHER ==
[2018-05-01 15:14] VITALS: BP 143/40
[~2019-01-30] MED LIST changes: +FLUD0.1T PO; -GLIM1TAB2 PO; +GLIM1TAB3 PO; +LEVO125T5 PO; +LOSA25TA PO; +METO25TA4 PO; +OMEP40CA45 PO; -OMEP40CA5 PO; +PYRI60TA PO; +RANO10002 PO; +SIMV20TA18 PO; -SIMV20TA3 PO; +SITA100T PO
--- NOTE | 2019-01-30 11:37 | CARD ---
MR#: [id number] Date of Study: 01/30/2019 Ordering Physician: AARON GARCIA, Referring Physician: AARON GARCIA, Tech: Phoebe Baez APPROVED REPORT EXAM: Two-dimensional and M-mode echocardiogram with Doppler and color Doppler. Other Information Quality : AverageHR: 70bpm INDICATION Cardiac Disease: CAD Surgery/Intervention CABG: Date: 2016 RISK FACTORS Hypertension Hyperlipidemia Diabetes 2D DIMENSIONS RVDd1.3 (2.9-3.5cm)Left Atrium(2D)4.6 (1.6-4.0cm) IVSd1.3 (0.7-1.1cm)Aortic Root(2D)3.4 (2.0-3.7cm) LVDd4.5 (3.9-5.9cm)LVOT Diameter2.2 (1.8-2.4cm) PWd1.3 (0.7-1.1cm)LVDs3.0 (2.5-4.0cm) FS (%) 33.7 %SV57.8 ml LVEF(%)62.7 (>50%) Aortic Valve AoV Peak Jerry.119.2cm/sAoV VTI25.5cm AO Peak GR.5.7mmHgLVOT Peak Jerry.106.2cm/s LVOT VTI 23.28cmAO Mean GR.3mmHg AMINA (VMAX)3.57zn6WME (VTI)3.61cm2 Mitral Valve MV E Oqfzbjgh53.7cm/sMV DECEL LCVR563vg MV A Fjeivyrk99.2cm/sE/A Ratio0.5 Pulmonary Valve PV Peak Yodfbxdm37.5cm/sPV Peak Grad.3mmHg Tricuspid Valve TR P. Lsyglzkq545os/sRAP VQAMQGML5opMk TR Peak Gr.27nkGiDKJP62goFb Pulmonary Vein S1 Oerzqprx39.0cm/sD2 Emkiffhv35.2cm/s LEFT VENTRICLE The left ventricle is normal size. There is moderate concentric left ventricular hypertrophy. The lef t ventricular systolic function is normal. The Ejection Fraction is 55-60%. Septal wall motion consis tent with post-operative state. Transmitral Doppler flow pattern is Grade I-abnormal relaxation patte rn. RIGHT VENTRICLE The right ventricle is normal size. There is normal right ventricular wall thickness. The right ventr icular systolic function is normal. ATRIA The left atrium is mildly dilated. The right atrium is borderline dilated. The interatrial septum is intact with no evidence for an atrial septal defect or patent foramen ovale as noted on 2-D or Dopple r imaging. AORTIC VALVE The aortic valve is calcified but opens well. Doppler and Color Flow revealed no significant aortic r egurgitation. There is no significant aortic valvular stenosis. MITRAL VALVE The mitral valve is normal in structure and function. There is no evidence of mitral valve prolapse. There is no mitral valve stenosis. Doppler and Color-flow revealed trace to mild mitral regurgitation . TRICUSPID VALVE The tricuspid valve is normal in structure and function. Doppler and Color Flow revealed trace tricus pid regurgitation with an estimated PAP of 35 mmHg. There is no tricuspid valve stenosis. PULMONIC VALVE The pulmonic valve is not well visualized. Doppler and Color Flow revealed no pulmonic valvular regur gitation. GREAT VESSELS The aortic root is normal in size. The SVC was not visualized. PERICARDIAL EFFUSION There is no evidence of significant pericardial effusion. Critical Notification Critical Value: No <Conclusion> The left ventricular systolic function is normal. The Ejection Fraction is 55-60%. Septal wall motion consistent with post-operative state. Transmitral Doppler flow pattern is Grade I-abnormal relaxation pattern. Trace to mild mitral regurgitation. Trace tricuspid regurgitation with an estimated PAP of 35 mmHg. There is no evidence of significant pericardial effusion. Signed by : Aaron Garcia, Electronically Approved : 01/30/2019 11:36:43
== END | disposition home or self-care (01) ==
LOC: ECHO 09:34
PROVIDERS: ATTEND Internal Medicine Cardiovascular Disease
DX: I08.0 Rheumatic disorders of both mitral and aortic valves (principal); I11.9 Hypertensive heart disease without heart failure; I25.810 Atherosclerosis of coronary artery bypass graft(s) without angina pectoris
CPT/HCPCS: 93306

== ENCOUNTER 2020-03-05 14:56 | Emergency (ER) | payer MEDICARE, OTHER ==
[~2020-03-05] VITALS: Ht 182.9 cm; Wt 91.0 kg
[~2020-03-05 14:56] MED LIST changes: -GLIM1TAB3 PO; +GLIM1TAB7 PO
--- NOTE | 2020-03-05 15:05 | PHYS DOC ---
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 EMS glucose was 243. EMR was reviewed shortly upon ed arrival. Nuclear study with high probability of PE in 2013. Review of Systems: Review of Systems: ROS: Unable to assess on ed arrival Allergies: Allergies: Allergies Coded Allergies Type Severity Reaction Last Updated Verified No Known Drug Allergies 08/16/16 No Physical Exam: PE: Constitutional: in no acute distress, awake but appears confused HENT: Normocephalic, atraumatic, GCS 10 (E4V1M5), not following commands or speaking, Eyes: AMANDA, EOMI, conjunctiva normal, no discharge, dry mucous membranes, Neck: Normal range of motion, supple, Cardiovascular: S1/2 present, regular rhythm Lungs & Thorax: bilateral equal chest rise, no tachypnea or increased work of breathing Abdomen: soft, no tenderness, Skin: Warm, dry, no erythema, no rash. [] Back: No tenderness, no CVA tenderness. [] Extremities: No tenderness, no cyanosis, no edema Neurologic: Alert, not moving LLE, no facial droop EKG: EKG: Supraventricular rhythm (suspect afib but rate is regular) at 122 bpm with old left bundle branch block (compared to March 2018 EKG), QTC 514, QRS 168, Radiology/Procedures: Radiology/Procedures: IMAGING REPORT Signed PATIENT: NEIDA FLORES ACCOUNT: [id number] : 1935 LOCATION: ER AGE: 85 SEX: M EXAM STATUS: REG ER ORD. PHYSICIAN: KENROY FELIZ DO REASON: ams PROCEDURE: CHEST AP ONLY CHEST AP ONLY 03/05/2020 2:59 PM INDICATION: Altered mental status COMPARISON: 04/27/2018 TECHNIQUE: Portable frontal view of the chest is provided. FINDINGS: The cardiomediastinal silhouette is within normal limits. There is increased bilateral hilar prominence which may be secondary to prominent pulmonary vasculature versus hilar lymphadenopathy. Median sternotomy changes are present. There are no significant pleural effusions. There is no pulmonary vascular congestion. No pneumothorax. No suspicious osseous abnormality. IMPRESSION: Bilateral hilar prominence which may be secondary to prominent vasculature versus lymphadenopathy. CT chest with contrast may be of benefit for further evaluation. Electronically signed by: Robby Trujillo MD (03/05/2020 3:39 PM) [facility] DICTATED AND SIGNED BY: ROBBY TRUJILLO MD DATE: 03/05/20 7743 CC: DAGO HUNT MD; KENROY FELIZ DO ~MTH0 0 IMAGING REPORT Signed PATIENT: NEIDA FLORES ACCOUNT: [id number] : 1935 LOCATION: ER AGE: 85 SEX: M EXAM STATUS: REG ER ORD. PHYSICIAN: KENROY FELIZ DO REASON: stroke PROCEDURE: CT CODE STROKE HEAD WO Examination: CT CODE STROKE HEAD WO History: stroke, difficulty speaking Comparison/Correlation: 04/27/2018 CT head without contrast Findings: Axial images of the head were obtained without contrast. Motion limits evaluation of multiple surgeries. Atrophy is advanced. Chronic ischemic changes in white matter noted. Old bilateral basal ganglia lacunar infarcts are present. Old small left thalamic lacunar infarct is present. No acute bony process. Orbits are unremarkable. Impression: No intracranial hemorrhage. Old lacunar infarcts. Consider further imaging of acute infarct is a concern. On 03/05/2020 at 3:18 PM, results were discussed with the referring provider. PQRS Compliance Statement: One or more of the following individualized dose reduction techniques were utilized for this examination: 1. Automated exposure control 2. Adjustment of the mA and/or kV according to patient size 3. Use of iterative reconstruction technique Electronically signed by: Justice Damian MD (03/05/2020 3:18 PM) [id number] DICTATED AND SIGNED BY: JUSTICE DAMIAN MD DATE: 03/05/20 6785 CC: DAGO HUNT MD; KENROY FELIZ DO ~MTH0 0 [place] [id number] IMAGING REPORT Signed PATIENT: NEIDA FLORES ACCOUNT: [id number] : 1935 LOCATION: ER AGE: 85 SEX: M EXAM STATUS: REG ER ORD. PHYSICIAN: KENROY FELIZ DO REASON: ams, PROCEDURE: CT ANGIOGRAPHY HEAD AND NECK Exam: CTA head and neck INDICATION: Altered mental status TECHNIQUE: Sequential axial images through the head and neck obtained following the administration of 75 mL of Isovue-370 IV contrast. Sagittal and coronal reformatted images were reconstructed from the axial data and reviewed. 3-D reformatted images were reconstructed from the axial data and reviewed. Comparisons: CT had same day FINDINGS: CTA NECK: Visualized portions of thoracic aorta are unremarkable. Standard three-vessel arch and reviewed. Right common carotid artery is patent without evidence of stenosis, occlusion or aneurysm. There is moderate plaque at the origin of the right internal carotid artery causing approximately 50% stenosis. Left common carotid artery is patent without evidence of stenosis, occlusion or aneurysm. There is severe stenosis at the origin of the left internal carotid artery with approximately 75% stenosis. Right vertebral artery is patent to the basilar confluence without evidence of stenosis, occlusion or aneurysm. Left vertebral artery is patent and terminates as the left PICA without evidence of stenosis, occlusion or aneurysm. Visualized soft tissues are unremarkable. CTA HEAD: Minimal calcified plaque at the cavernous segment of the right internal carotid artery without significant stenosis. Left MCA is patent. Left SAV is patent. Minimal calcified plaque at the cavernous segment of the left internal carotid artery without significant stenosis. Left MCA is patent. Left SAV is patent. Basilar artery is patent without evidence of stenosis, occlusion or aneurysm. processing spec are patent bilaterally. IMPRESSION: 1. No large vessel occlusion. 2. 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 3. Moderate plaque at the origin of the right internal carotid artery causing approximately 50% stenosis. Exposure: One or more of the following in the visualized dose reduction techniques were utilized for this examination: 1. Automated exposure control 2. Adjustment of the MA and/or KV according to patient size 3. Use of iterative of reconstructive technique FOR INTERNAL CODING PURPOSES Critical result: Findings discussed with KENROY FELIZ at 03/05/2020 3:40 PM. RESULT CODE: (C) Electronically signed by: Lita Mckeon MD (03/05/2020 3:47 PM) [facility] DICTATED AND SIGNED BY: LITA MCKEON MD DATE: 03/05/20 1547 CC: DAGO HUNT MD; TRINI,KENROY Kulkarni DO ~MTH0 0 Heart Score: Risk Factors: Risk Factors: DM, Current or recent (<one month) smoker, HTN, HLP, family history of CAD, obesity. Risk Scores: Score 0 - 3: 2.5% MACE over next 6 weeks - Discharge Home Score 4 - 6: 20.3% MACE over next 6 weeks - Admit for Clinical Observation Score 7 - 10: 72.7% MACE over next 6 weeks - Early Invasive Strategies Course & Med Decision Making: Course & Med Decision Making Pertinent Labs and Imaging studies reviewed. (See chart for details) Shortly after ED arrival patient awake and alert with medical decision-making capacity, NIHSS 0, suspect TIA vs postural hypotension vs syncope. Hypotension and tachycardia has resolved. Patient reports he slept in and his lunch was his breakfast (cereal). Has no active complaints. Reports compliance with fludrocortisone twice daily-has not missed any dosages. No recent flulike symptoms. Did report nausea and 2 episodes of NBNB vomiting this morning, has resolved, no associated chest/back pain or discomfort. reports pt with similar episodes in the past, last syncope was 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 Repeat troponin and lactic acid pending. Also with slightly worsening renal function, hypokalemia and hypomagnesemia. Also with nonketotic hyperglycemia. I discussed with Dr. Joaquin, [place] physician who recommends transfer to [place] for neurology evaluation and vascular consultation. Patient stable and agrees with this plan. Pt is a full code. Accepted by Dr. Hess I have spoken with the patient and/or caregivers. I have explained the patient's condition, diagnosis and treatment plan based on the information available to me at this time. I have answered the patient's and/or caregivers questions and answered any concerns. The patient and/or caregivers have as good an understanding of the patient's diagnosis, condition and treatment plan as can be expected at this point. The patient has been stabilized within the capability of the emergency department. The patient will be transported for f urther care and management or will be moved to an observation or inpatient service. I have communicated with the staff or medical practitioner taking over this patient's care. Sole Disclaimer: Sole Disclaimer: This electronic medical record was generated, in whole or in part, using a voice recognition dictation system. Departure Departure: Impression: Primary Impression: Syncope Additional Impressions: Hypotension Hypokalemia LINSEY (acute kidney injury) Elevated lactic acid level Uncontrolled diabetes mellitus Disposition: 05 DC/TRF OTHER TYPE INSTITUTI Admitting Physician: Other (Dr. Hess) Condition: GUARDED Referrals: DAGO HUNT MD (PCP) KENROY FELIZ DO Mar 05, 2020 15:05
[2020-03-05] MEDS: IOHEXOL 350 MG/ML 100 ML VIAL. IV ONE (15:15)
[2020-03-05] MEDS ORDERED: CONTRAST GIVEN. MC PRN (15:15)
--- NOTE | 2020-03-05 15:21 | RAD ---
Examination: CT CODE STROKE HEAD WO History: stroke, difficulty speaking Comparison/Correlation: 04/27/2018 CT head without contrast Findings: Axial images of the head were obtained without contrast. Motion limits evaluation of multiple surgeries. Atrophy is advanced. Chronic ischemic changes in white matter noted. Old bilateral basal ganglia lacunar infarcts are present. Old small left thalamic lacunar infarct is present. No acute bony process. Orbits are unremarkable. Impression: No intracranial hemorrhage. Old lacunar infarcts. Consider further imaging of acute infarct is a concern. On 03/05/2020 at 3:18 PM, results were discussed with the referring provider. PQRS Compliance Statement: One or more of the following individualized dose reduction techniques were utilized for this examination: 1. Automated exposure control 2. Adjustment of the mA and/or kV according to patient size 3. Use of iterative reconstruction technique Electronically signed by: Justice Dyer MD (03/05/2020 3:18 PM) [id number]
--- NOTE | 2020-03-05 15:42 | RAD ---
CHEST AP ONLY 03/05/2020 2:59 PM INDICATION: Altered mental status COMPARISON: 04/27/2018 TECHNIQUE: Portable frontal view of the chest is provided. FINDINGS: The cardiomediastinal silhouette is within normal limits. There is increased bilateral hilar prominence which may be secondary to prominent pulmonary vasculature versus hilar lymphadenopathy. Median sternotomy changes are present. There are no significant pleural effusions. There is no pulmonary vascular congestion. No pneumothorax. No suspicious osseous abnormality. IMPRESSION: Bilateral hilar prominence which may be secondary to prominent vasculature versus lymphadenopathy. CT chest with contrast may be of benefit for further evaluation. Electronically signed by: Ca Mcneal MD (03/05/2020 3:39 PM) [facility]
--- NOTE | 2020-03-05 15:50 | RAD ---
Exam: CTA head and neck INDICATION: Altered mental status TECHNIQUE: Sequential axial images through the head and neck obtained following the administration of 75 mL of Isovue-370 IV contrast. Sagittal and coronal reformatted images were reconstructed from the axial data and reviewed. 3-D reformatted images were reconstructed from the axial data and reviewed. Comparisons: CT had same day FINDINGS: CTA NECK: Visualized portions of thoracic aorta are unremarkable. Standard three-vessel arch and reviewed. Right common carotid artery is patent without evidence of stenosis, occlusion or aneurysm. There is moderate plaque at the origin of the right internal carotid artery causing approximately 50% stenosis. Left common carotid artery is patent without evidence of stenosis, occlusion or aneurysm. There is severe stenosis at the origin of the left internal carotid artery with approximately 75% stenosis. Right vertebral artery is patent to the basilar confluence without evidence of stenosis, occlusion or aneurysm. Left vertebral artery is patent and terminates as the left PICA without evidence of stenosis, occlusion or aneurysm. Visualized soft tissues are unremarkable. CTA HEAD: Minimal calcified plaque at the cavernous segment of the right internal carotid artery without significant stenosis. Left MCA is patent. Left SAV is patent. Minimal calcified plaque at the cavernous segment of the left internal carotid artery without significant stenosis. Left MCA is patent. Left SAV is patent. Basilar artery is patent without evidence of stenosis, occlusion or aneurysm. 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 IMPRESSION: 1. No large vessel occlusion. 2. 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 3. Moderate plaque at the origin of the right internal carotid artery causing approximately 50% stenosis. Exposure: One or more of the following in the visualized dose reduction techniques were utilized for this examination: 1. Automated exposure control 2. Adjustment of the MA and/or KV according to patient size 3. Use of iterative of reconstructive technique FOR INTERNAL CODING PURPOSES Critical result: Findings discussed with KENROY FELIZ at 03/05/2020 3:40 PM. RESULT CODE: (C) Electronically signed by: Lita Doyle MD (03/05/2020 3:47 PM) [facility]
[2020-03-05 15:51] LABS: BASO % 0 % (0-3); EOS # 0.3 x10^3/uL (0.0-0.7); EOS % 3 % (0-3); HEMATOCRIT 38.4 % (39.0-53.0); HEMOGLOBIN 12.3 g/dL (13.0-17.5); LYMPH # 1.5 x10^3/uL (1.0-4.8); LYMPH % 17 % (24-48); MEAN CORPUSCULAR HEMOGLOBIN 29 pg (25-35); MEAN CORPUSCULAR HGB CONC 32 g/dL (31-37); MEAN CORPUSCULAR VOLUME 91 fL (79-100); MONO # 0.6 x10^3/uL (0.0-1.1); MONO % 7 % (0-9); NEUT # 6.4 x10^3uL (1.8-7.7); NEUT % 72 % (31-73); PLATELET COUNT 154 x10^3/uL (140-400); RED BLOOD COUNT 4.21 x10^6/uL (4.30-5.70); RED CELL DISTRIBUTION WIDTH 15.2 % (11.5-14.5); WHITE BLOOD COUNT 8.8 x10^3/uL (4.0-11.0)
[2020-03-05 16:06] LABS: CALCIUM 8.5 mg/dL (8.5-10.1); CREATININE 1.9 mg/dL (0.7-1.3); GFR 33.8; MAGNESIUM 1.7 mg/dL (1.8-2.4); PHOSPHORUS 4.1 mg/dL (2.6-4.7); TOTAL BILIRUBIN 0.7 mg/dL (0.2-1.0)
[2020-03-05 16:08] LABS: ACETAMIN < 2.0 mcg/mL (10-30); SALIC < 2.8 mg/dL (2.8-20.0)
[2020-03-05 16:11] LABS: POTASSIUM 2.9 mmol/L (3.5-5.1)
--- NOTE | 2020-03-05 16:29 | EKG ---
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
[2020-03-05] MEDS: POTASSIUM CHLORIDE 20 MEQ TABLET.ER. PO ONE (16:40)
[2020-03-05] MEDS: IV NORMAL SALINE 1,000ML 1,000 ML IV ONE (16:40)
[2020-03-05 16:45] LABS: BARBITURATES NEG (NEG); BENZODIAZEPINES NEG (NEG); CANNABINOIDS NEG (NEG); COCAINE NEG (NEG); METHADONE NEG (NEG); OPIATES NEG (NEG); PHENCYCLIDINE NEG (NEG)
[2020-03-05 16:52] LABS: AMPHETAMINE/METHAMPHETAMINE NEG (NEG)
[2020-03-05] MEDS: MAGNESIUM SULFATE 2GM 50 ML IV ONE (18:06)
[2020-03-05 18:13] LABS: BACTERIA,URINE 0 /HPF (0-FEW); BILIRUBIN,URINE NEG (NEG); CLARITY,URINE CLEAR; COLOR,URINE COLORLESS; GLUCOSE,URINE 100 mg/dL (NEG); NITRITE,URINE NEG (NEG); RBC,URINE RARE /HPF (0-2); UROBILINOGEN,URINE 0.2 mg/dL (0.2 mg/dL); WBC,URINE RARE /HPF (0-4)
[2020-03-05] MEDS: cloNIDine TTS-2 1 PATCH PATCH TD ONE (20:19)
[2020-03-05 21:16] VITALS: BP 191/111
== END 2020-03-05 21:38 | disposition short-term general hospital (02) ==
LOC: ER 14:56
DX: R55 Syncope and collapse (principal); I95.9 Hypotension, unspecified; E87.6 Hypokalemia; N17.9 Acute kidney failure, unspecified; R74.02 Elevation of levels of lactic acid dehydrogenase [LDH]; E11.9 Type 2 diabetes mellitus without complications; R41.82 Altered mental status, unspecified; E78.00 Pure hypercholesterolemia, unspecified; I10 Essential (primary) hypertension; I25.10 Atherosclerotic heart disease of native coronary artery without angina pectoris; Z90.89 Acquired absence of other organs
CPT/HCPCS: 36415; 70450; 70496; 70498; 71045; 80053; 80307; 80329; 81001; 83605; 83735; 84100; 84484; 85025; 85610; 85730; 87040; 87205; 93005; 96361; 96365; 96366; 99285; J3475; J7030; Q9967; G0480

== ENCOUNTER → 2020-04-04 | Outpatient (CLI) | payer MEDICARE ==
[2020-03-05 21:16] VITALS: BP 191/111
== END ==
LOC: LAB 09:25
PROVIDERS: ATTEND Nurse Anesthetist, Certified Registered
DX: Z01.812 Encounter for preprocedural laboratory examination (principal); Z20.828 Contact with and (suspected) exposure to other viral communicable diseases; H26.9 Unspecified cataract
CPT/HCPCS: U0003

== ENCOUNTER → 2020-04-08 | Day surgery (SDC) | payer MEDICARE ==
[~2020-04-08] MED LIST changes: +BALANCED SALT IRRIG OPHTH SOLN 15 ML BOTTLE. IRR ONE; +CATARACT OPHTH GEL 0.5 ML SYRINGE. OS ONE; +CHONDROIT-SOD-HYALURONATE KIT. OS ONE; +EPINEPHrine AMPULE 0.5 MG in BALANCED SALT IRRIG SOLN PLUS 500 ML IO ONE; +ERYTHROMYCIN 0.5% OPHTH OINTMENT 1GM TUBE. OS ONE; +HYALURONIDASE 75UNITS in LIDOCAINE 2% PF OPHTH 10 ML SYRINGE. OS ONE; +IPRATRPIUM/ALBUTEROL 0.5/2.5MG 3 ML NEBU. NEB PRN; +IV RINGERS SOLUTION,LACTATED 1,000 ML IV SCH; +KETOROLAC TROMETHAMINE 0.5% OPHTH SOLUTION BOTTLE. OS SCH; +LIDO/EPI IN BSS OPHTH 4 ML SYRINGE. OS ONE; +MIDAZOLAM HCL PF 2 MG/2 ML VIAL. IV ONE; +MIDAZOLAM HCL PF 2 MG/2 ML VIAL. ONE; +MOXIFLOXACIN 0.5% OPHTH SOLUTION 3ML BOTTLE. OS SCH; +ONDANSETRON PF 4 MG/2 ML VIAL. IV PRN; +POVIDONE-IODINE 5% OPHTH SOLUTION 30ML BOTTLE. OS ONE; +PROPOFOL 10,000 MCG/ML (20ML) VIAL IV ONE; +TETRACAINE 0.5% OPHTH SOLUTION 4ML BOTTLE. OS ONE; +TETRACAINE 0.5% OPHTH SOLUTION 4ML BOTTLE. OU ONE; +prednisoLONE ACETATE 1% OPHTH SUSPENSION 5ML BOTTLE. OS SCH
[2020-04-08] MEDS: MOXIFLOXACIN 0.5% OPHTH SOLUTION 3ML BOTTLE. OS SCH ×3 (08:03→08:14)
[2020-04-08 09:25] VITALS: BP 128/86
--- NOTE | 2020-04-08 09:28 | PDOC4 ---
Phaco/IFIS w/o Ring/OS Date of Procedure: Apr 08, 2020 Preoperative Diagnosis: 1. Senile Cataract, Left Eye 2. Anticipated Intraoperative Floppy Iris Syndrome Posoperative Diagnosis: 1. 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 Procedure: Procdeure: Left Phacoemulsification with Intraocular Lens Implant Findings: Senile Cataract Intraoperative Floppy Iris Syndrome Indications: Worsening vision interfering with patient's lifestyle Narrative: After discussing the risks, complications and alternatives, including but not limited to loss of vision, infection, bleeding, swelling, anesthetic reaction, capsule rupture with vitreous loss, etc., the patient was given a peribulbar block under mild IV sedation and cardiac monitoring. Pressure was applied to the eye for approximately 10 minutes. The patient was transferred to the main operating room and was prepped and draped in the usual sterile fashion and positioned under the microscope. A lid speculum was placed. A temporal clear corneal incision was made with a keratome and epi-Shugarcaine was injected into the anterior chamber, this was followed by injecting viscoelastic. A side port incision was made. A continuous tear capsulorrhexis was performed, then hydrodissection was accomplished with balanced salt solution. The phacoemulsification needle was placed in the eye and the nucleus was emulsified. The remaining cortical material was removed with the irrigation and aspiration apparatus. The capsule was polished as needed. The posterior capsule was noted to be clean and intact. Viscoelastic was injected into the eye inflating the capsular bag. An intraocular lens was injected into the eye, unfolding as desired and was positioned in the capsular bag. The viscoelastic was aspirated from the eye. The wound edges were hydrated with balanced salt solution and there were no leaks. Viscoelastic was injected over the limbal incisions. Antibiotic and steroid were placed on the eye. The lid speculum was removed, the eye patched shut and a Sorensen shield applied. There were no complications and the patient was taken to the PACU in good condition. REDDY LEAL DO Apr 08, 2020 09:28
== END | disposition home or self-care (01) ==
LOC: SURG 07:30
PROVIDERS: ATTEND Ophthalmology
DX: E11.36 Type 2 diabetes mellitus with diabetic cataract (principal); H25.12 Age-related nuclear cataract, left eye; H21.81 Floppy iris syndrome; I25.2 Old myocardial infarction; I13.0 Hypertensive heart and chronic kidney disease with heart failure and stage 1 through stage 4 chronic kidney disease, or unspecified chronic kidney disease; E11.22 Type 2 diabetes mellitus with diabetic chronic kidney disease; I50.9 Heart failure, unspecified; N18.30 Chronic kidney disease, stage 3 unspecified; I25.810 Atherosclerosis of coronary artery bypass graft(s) without angina pectoris; I70.0 Atherosclerosis of aorta; E11.43 Type 2 diabetes mellitus with diabetic autonomic (poly)neuropathy; E11.65 Type 2 diabetes mellitus with hyperglycemia; E11.29 Type 2 diabetes mellitus with other diabetic kidney complication; E78.5 Hyperlipidemia, unspecified; J43.9 Emphysema, unspecified; I25.5 Ischemic cardiomyopathy; I48.0 Paroxysmal atrial fibrillation; M19.90 Unspecified osteoarthritis, unspecified site; E66.9 Obesity, unspecified; K21.9 Gastro-esophageal reflux disease without esophagitis; Z88.8 Allergy status to other drugs, medicaments and biological substances; Z79.4 Long term (current) use of insulin; Z79.82 Long term (current) use of aspirin; Z79.01 Long term (current) use of anticoagulants; Z82.49 Family history of ischemic heart disease and other diseases of the circulatory system; Z82.0 Family history of epilepsy and other diseases of the nervous system; Z86.73 Personal history of transient ischemic attack (TIA), and cerebral infarction without residual deficits; Z95.5 Presence of coronary angioplasty implant and graft; Z95.1 Presence of aortocoronary bypass graft; Z86.711 Personal history of pulmonary embolism; Z86.718 Personal history of other venous thrombosis and embolism; Z85.828 Personal history of other malignant neoplasm of skin; Z87.891 Personal history of nicotine dependence; Z90.49 Acquired absence of other specified parts of digestive tract; Z90.89 Acquired absence of other organs; Z68.28 Body mass index [BMI] 28.0-28.9, adult
CPT/HCPCS: 66984; 82947; J0171; J2250; J2704; V2632

== ENCOUNTER → 2020-04-18 | Outpatient (CLI) | payer MEDICARE ==
[2020-04-08 09:25] VITALS: BP 128/86
[~2020-04-18] MED LIST changes: -BALANCED SALT IRRIG OPHTH SOLN 15 ML BOTTLE. IRR ONE; -CATARACT OPHTH GEL 0.5 ML SYRINGE. OS ONE; -CHONDROIT-SOD-HYALURONATE KIT. OS ONE; -EPINEPHrine AMPULE 0.5 MG in BALANCED SALT IRRIG SOLN PLUS 500 ML IO ONE; -ERYTHROMYCIN 0.5% OPHTH OINTMENT 1GM TUBE. OS ONE; -HYALURONIDASE 75UNITS in LIDOCAINE 2% PF OPHTH 10 ML SYRINGE. OS ONE; -IPRATRPIUM/ALBUTEROL 0.5/2.5MG 3 ML NEBU. NEB PRN; -IV RINGERS SOLUTION,LACTATED 1,000 ML IV SCH; -KETOROLAC TROMETHAMINE 0.5% OPHTH SOLUTION BOTTLE. OS SCH; -LIDO/EPI IN BSS OPHTH 4 ML SYRINGE. OS ONE; -MIDAZOLAM HCL PF 2 MG/2 ML VIAL. IV ONE; -MIDAZOLAM HCL PF 2 MG/2 ML VIAL. ONE; -MOXIFLOXACIN 0.5% OPHTH SOLUTION 3ML BOTTLE. OS SCH; -ONDANSETRON PF 4 MG/2 ML VIAL. IV PRN; -POVIDONE-IODINE 5% OPHTH SOLUTION 30ML BOTTLE. OS ONE; -PROPOFOL 10,000 MCG/ML (20ML) VIAL IV ONE; -TETRACAINE 0.5% OPHTH SOLUTION 4ML BOTTLE. OS ONE; -TETRACAINE 0.5% OPHTH SOLUTION 4ML BOTTLE. OU ONE; -prednisoLONE ACETATE 1% OPHTH SUSPENSION 5ML BOTTLE. OS SCH
== END ==
LOC: LAB 10:30
PROVIDERS: ATTEND Nurse Anesthetist, Certified Registered
DX: Z01.812 Encounter for preprocedural laboratory examination (principal); U07.1 COVID-19
CPT/HCPCS: U0003

== ENCOUNTER → 2020-07-29 | Outpatient (CLI) | payer MEDICARE ==
[2020-04-08 09:25] VITALS: BP 128/86
--- NOTE | 2020-07-29 16:27 | CARD ---
MR#: [id number] Date of Study: 07/29/2020 Ordering Physician: AARON AGUILAR, Referring Physician: AARON AGUILAR Tech: Irene Alfred ONELIA APPROVED REPORT EXAM: Two-dimensional and M-mode echocardiogram with Doppler and color Doppler. Other Information Quality : Fair INDICATION Cardiac Disease: CAD Surgery/Intervention CABG: Date: 1995 2D DIMENSIONS RVDd2.5 (2.9-3.5cm)Left Atrium(2D)3.4 (1.6-4.0cm) IVSd2.5 (0.7-1.1cm)Aortic Root(2D)3.6 (2.0-3.7cm) LVDd3.5 (3.9-5.9cm)LVOT Diameter2.0 (1.8-2.4cm) PWd1.5 (0.7-1.1cm)LVDs3.1 (2.5-4.0cm) FS (%) 22.0 %SV12.4 ml Aortic Valve AoV Peak Jerry.122.9cm/sAoV VTI18.8cm AO Peak GR.6.0mmHgLVOT Peak Jerry.135.1cm/s LVOT VTI 24.55cmAO Mean GR.4mmHg AMINA (VMAX)3.47zo3NVL (VTI)4.00cm2 Mitral Valve MV E Agvfcgwi53.7cm/sMV DECEL FTJU851xt MV A Mahvsihd50.6cm/sE/A Ratio0.5 Tricuspid Valve TR P. Gpdbnftx074mw/sRAP WFNPWSTX3wkTd TR Peak Gr.79mqQtCBRF34quNa Pulmonary Vein S1 Hggvfiin12.0cm/sD2 Bmuwzbzp05.3cm/s LEFT VENTRICLE The left ventricle cavity is mildly decreased. There is moderate concentric left ventricular hypertro phy. Left ventricle systolic function is borderline impaired. The Ejection Fraction is 45-50%. Septal motion consistent with post-operative state vs. conduction abnormality. There is mild hypokinesis in the inferior wall. Transmitral Doppler flow pattern is Grade II-pseudonormal filling dynamics. RIGHT VENTRICLE The right ventricle cavity is small. The right ventricular systolic function is normal. ATRIA The left atrium size is normal. The right atrium size is normal. The interatrial septum is intact wit h no evidence for an atrial septal defect or patent foramen ovale as noted on 2-D or Doppler imaging. AORTIC VALVE The aortic valve is mildly thickened but opens well. Doppler and Color Flow revealed no significant a ortic regurgitation. There is no significant aortic valvular stenosis. MITRAL VALVE The mitral valve is calcified but opens well. There is no evidence of mitral valve prolapse. There is no mitral valve stenosis. Doppler and Color-flow revealed trace mitral regurgitation. TRICUSPID VALVE The tricuspid valve is normal in structure and function. Doppler and Color Flow revealed trace tricus pid regurgitation. The PA pressure was estimated at 26 mmHg. There is no tricuspid valve stenosis. PULMONIC VALVE The pulmonic valve is not well visualized. Doppler and Color Flow revealed no pulmonic valvular regur gitation. There is no pulmonic valvular stenosis. GREAT VESSELS The aortic root is normal in size. The ascending aorta is not well seen. The IVC is normal in size an d collapses >50% with inspiration. PERICARDIAL EFFUSION There is no evidence of significant pericardial effusion. Critical Notification Critical Value: No <Conclusion> The left ventricle cavity is mildly decreased. Left ventricle systolic function is borderline impaired. The Ejection Fraction is 45-50%. Septal motion consistent with post-operative state vs. conduction abnormality. There is mild hypokinesis in the inferior wall. There is moderate concentric left ventricular hypertrophy. Doppler and Color Flow revealed no significant aortic regurgitation. There is no significant aortic valvular stenosis. Doppler and Color-flow revealed trace mitral regurgitation. Doppler and Color Flow revealed trace tricuspid regurgitation. The PA pressure was estimated at 26 mmHg. Signed by : Jose Lay MD Electronically Approved : 07/29/2020 16:27:04
== END ==
LOC: ECHO 12:53
PROVIDERS: ATTEND Internal Medicine Cardiovascular Disease
DX: I34.0 Nonrheumatic mitral (valve) insufficiency (principal); I25.810 Atherosclerosis of coronary artery bypass graft(s) without angina pectoris
CPT/HCPCS: 93306